=== PATIENT | female | born 1990 | race Caucasian/White ===

== ENCOUNTER → 2016-04-07 | Outpatient (CLI) | payer OTHER ==
[~2016-04-07] MED LIST: ACET50TA PO; IBUP80TA PO; VITAPRTA PO
--- NOTE | 2016-04-07 10:31 | REP ---
OBSTETRIC SONOGRAPHY: HISTORY: Supervision of for anatomy. FINDINGS: Scanning through the gravid uterus demonstrates a viable single intrauterine gestation in a cephalic lie. motion is observed and heart rate is recorder 144 beats per minute. A posterior grade 1 placenta is seen without evidence of previa or abruption. Amniotic fluid is subjectively normal. Closed cervical length is 4.0 cm. No extrauterine abnormality is observed. There has been appropriate interval growth. No anomaly is seen. nose and lips, four-chamber heart and right ventricular cardiac outflow tract views are less than optimally visualized due to position. The following additional anatomic structures are identified and felt to be sonographically unremarkable: cranium, choroid plexus, cavum, cerebellum and posterior fossa, lungs, left ventricular outflow tract view, diaphragm, left-sided stomach, abdominal wall cord insertion, three-vessel umbilical cord, kidneys and bladder, spine, upper and lower extremities. Biometry Chart: BPD 5.0 cm = 21 weeks 1 day HC 18.6 cm = 21 weeks 0 days AC 16.2 cm = 21 weeks 2 days FL 3.6 cm = 21 weeks 3 days HL 3.4 cm = 21 weeks 3 days HC/AC ratio normal 1.15. Cephalic index normal 0.74. Estimated weight 414 grams, 0 pounds 14 ounces, 47th percentile for 21 weeks 2 days. IMPRESSION: Viable single intrauterine gestation at 21 weeks 2 days by today's composite sonographic criteria. Expected gestational age estimate based on prior sonography is 21 weeks 2 days. MECHE by prior sonography is August 16, 2016. Facial profile, four-chamber heart, and right ventricular cardiac outflow tract views less than optimally seen. Signed by Woody Hernandes MD 04/07/2016 08:08 P
== END ==
LOC: M RAD 08:25
PROVIDERS: ATTEND Specialist
DX: Z34.82 Encounter for supervision of other normal pregnancy, second trimester (principal)

== ENCOUNTER → 2016-04-26 | Outpatient (CLI) | payer OTHER ==
--- NOTE | 2016-04-27 03:47 | REP ---
Clinical: Anatomical evaluation. Comparison: 04/07/2016 . Findings: Examination demonstrates a single live intrauterine in cephalic presentation. motion is identified by technologist. Placenta is grade 1 and noted posteriorly and low-lying approximately 1 cm from the closed internal os. Amniotic fluid volume is normal. Cervix measures 3.7 cm in length and appears closed. Gestational age by LMP 22 weeks 4 days with MECHE 08/26/2016 . Gestational age by current measurements 22 weeks 6 days with MECHE 08/24/2016 . FHR equals 144 beats per minute. Estimated weight 608 grams ( 77th percentile). Anatomical assessment demonstrates normal structures including cranium, choroid plexus, cavum, cerebellum/posterior fossa, facial features, lungs, four-chamber heart/ventricular outflow tracts, diaphragm, stomach, cord insertion/three-vessel cord, kidneys/bladder, spine, and extremities. Impression: Single live gestation in cephalic presentation. Low-lying placenta approximately 1 cm from the closed internal os. Anatomical assessment is complete and normal. Signed by Regan Martinez MD 04/27/2016 03:38 A
== END ==
LOC: M RAD 12:25
PROVIDERS: ATTEND Specialist
DX: Z34.82 Encounter for supervision of other normal pregnancy, second trimester (principal)

== ENCOUNTER → 2016-06-09 | Outpatient (CLI) | payer OTHER ==
[~2016-06-09] MED LIST changes: +PENI250T57 PO
[2016-06-09 13:33] LABS: BASO % 0.2 % (0.0-1.0); EOS # 0.1 K/mm3 (0.0-0.50); EOS % 0.7 % (0.0-3.0); LARGE UNSTAINED CELL # 0.1 K/mm3 (0.0-0.4); LARGE UNSTAINED CELL % 1.1 % (0.0-4.0); LYMPH # 1.6 K/mm3 (1.5-6.5); LYMPH % 14.1 % (24.0-44.0); MEAN CORPUSCULAR HEMOGLOBIN 27.2 pg (27.0-33.0); MEAN CORPUSCULAR HGB CONC 32.9 g/dl (32.0-36.5); MEAN CORPUSCULAR VOLUME 82.9 fl (80.0-96.0); MONO # 0.6 K/mm3 (0.0-0.8); MONO % 5.2 % (0.0-5.0); NEUTROPHILS # 8.4 K/mm3 (1.8-7.7); NEUTROPHILS % 78.7 % (36.0-66.0); PLATELET COUNT, AUTOMATED 187 k/mm3 (150-450); RED CELL DISTRIBUTION WIDTH 14.8 % (11.5-14.5); WHITE BLOOD COUNT 10.7 K/mm3 (4.0-10.0)
== END ==
LOC: M LAB 11:50
PROVIDERS: ATTEND Specialist
DX: Z34.82 Encounter for supervision of other normal pregnancy, second trimester (principal)
CPT/HCPCS: 36415; 82950; 85025; 86850; 86900; 86901; J2790

== ENCOUNTER 2016-06-14 08:23 | Emergency (ER) | payer OTHER ==
[~2016-06-14] VITALS: Ht 157.5 cm; Wt 85.7 kg
[~2016-06-14 08:23] MED LIST changes: -PENI250T57 PO
[2016-06-14 08:49] VITALS: BP 125/72
[2016-06-14] MEDS ORDERED: PENI250T57 PO (09:22)
== END 2016-06-14 09:26 | disposition home or self-care (01) ==
LOC: M ED 08:56
DX: J02.0 Streptococcal pharyngitis (principal)

== ENCOUNTER → 2016-06-14 | Outpatient (CLI) | payer OTHER ==
--- NOTE | 2016-06-14 12:13 | REP ---
Clinical: Low-lying placenta on prior examination. Comparison: 04/26/2016 . Findings: Examination demonstrates a single live intrauterine in cephalic presentation. motion is identified by technologist. Placenta is noted posteriorly and grade one without evidence for placenta previa or abruption. The placental tip is identified greater than 9 cm from the closed internal os. Amniotic fluid volume is normal. Cervix measures 4.3 cm in length and appears closed. Evidence for nuchal cord. Gestational age by LMP 29 weeks 4 days with MECHE is 08/26/2016 . Gestational age by current measurements 32 weeks 0 days with MECHE 08/09/2016 . FHR equals 127 beats per minute. OBED equals 15.8 cm. Estimated weight 1890 grams (65th percentile). Anatomical assessment demonstrates normal structures including cranium, choroid plexus, cavum, facial features, lungs, four-chamber heart/ventricular outflow tracts, diaphragm, stomach, cord insertion/three-vessel cord, kidneys/bladder, spine, and lower extremities. Impression: 1. Single live intrauterine in cephalic presentation demonstrating appropriate interval growth compared to first ultrasound. 2. Posterior grade 1 placenta without evidence for placenta previa or abruption. 3. Evidence for nuchal cord. Signed by Regan Martinez MD 06/14/2016 12:04 P
== END ==
LOC: M RAD 11:10
PROVIDERS: ATTEND Specialist
DX: Z36 Encounter for antenatal screening of mother (principal); Z3A.32 32 weeks gestation of pregnancy

== ENCOUNTER 2016-06-22 11:13 | Outpatient (CLI) | payer OTHER ==
[~2016-06-22 11:13] MED LIST changes: +PENI250T57 PO
[2016-06-22] MEDS ORDERED: IRON SUCROSE 500 MG in NS 250 ML IV ONE (13:00)
[2016-06-22] MEDS ORDERED: PRENATAL VITAMIN PO (16:20)
[2016-06-22] MEDS ORDERED: PRENTAB52 PO (16:22)
== END 2016-06-22 17:05 | disposition home or self-care (01) ==
LOC: M INFU 11:13
PROVIDERS: ATTEND Specialist
DX: D64.9 Anemia, unspecified (principal)
CPT/HCPCS: 96365; 96366; J1756

== ENCOUNTER 2016-07-22 11:08 | Outpatient (CLI) | payer OTHER ==
[~2016-07-22] VITALS: Ht 157.5 cm; Wt 85.0 kg
[~2016-07-22 11:08] MED LIST changes: +PRENATAL VITAMIN PO; +PRENTAB52 PO
== END 2016-07-22 12:18 | disposition home or self-care (01) ==
LOC: M LDO 11:08
PROVIDERS: ATTEND Advanced Practice Midwife
DX: O47.03 False labor before 37 completed weeks of gestation, third trimester (principal); Z3A.35 35 weeks gestation of pregnancy; Z91.030 Bee allergy status; Z91.048 Other nonmedicinal substance allergy status

== ENCOUNTER 2016-08-21 19:30 | Inpatient (IN) | payer OTHER ==
[~2016-08-21] VITALS: Ht 157.5 cm; Wt 85.0 kg
[2016-08-21 20:15] LABS: MEAN CORPUSCULAR HEMOGLOBIN 28.5 pg (27.0-33.0); MEAN CORPUSCULAR HGB CONC 34.5 g/dl (32.0-36.5); MEAN CORPUSCULAR VOLUME 82.4 fl (80.0-96.0); RED CELL DISTRIBUTION WIDTH 17.8 % (11.5-14.5); WHITE BLOOD COUNT 8.8 K/mm3 (4.0-10.0)
[2016-08-21] MEDS ORDERED: LR 1,000 ML IV SCH (20:26)
[2016-08-21] MEDS ORDERED: LACTATED RINGER'S 1000 ML IV STA (20:26)
[2016-08-21] MEDS ORDERED: OXYTOCIN DRIP 30 UNITS in APPROPRIATE DILUENT 1 EA IV SCH (20:30)
[2016-08-21] MEDS ORDERED: FENTANYL 2MCG/ML ROPIVACAINE 0.2% IN 0.9% NACL 200ML IVBAG As Ordered ONE (22:39)
[2016-08-21] MEDS ORDERED: FENTANYL/ROPIVACAINE/NACL BAG 200 ML EPIDURAL SCH (23:30)
[2016-08-21] MEDS ORDERED: REFRIGERATOR IV KEYS XX PRN (23:30)
[2016-08-21] MEDS ORDERED: ONDANSETRON 4MG/2ML VIAL (J2405) IV PRN (23:30)
[2016-08-21] MEDS ORDERED: LACTATED RINGER'S 1000 ML IV PRN (23:30)
[2016-08-21] MEDS ORDERED: diphenhydrAMINE INJ 50MG/ML VIAL (J1200) IV PRN (23:30)
[2016-08-21] MEDS ORDERED: EPIDURAL COMMENT XX SCH (23:30)
[2016-08-21] MEDS ORDERED: EPIDURAL/PCA KEYS XX PRN (23:30)
[2016-08-21] MEDS ORDERED: NALOXONE INJ 0.4 MG/1 ML VIAL (J2310) IV PRN (23:30)
[2016-08-22] VITALS (18 sets, daily range): BP systolic 88–128; BP diastolic 52–73
[2016-08-22 00:18] LABS: ALT/SGPT 16 U/L (12-78); AST/SGOT 14 U/L (15-37); BILIRUBIN,TOTAL 0.6 MG/DL (0.2-1.0); CREATININE FOR GFR 0.51 MG/DL (0.55-1.02); GLOMERULAR FILTRATION RATE > 60.0 (>60)
[2016-08-22] MEDS: ePHEDrine SULFATE 25 MG/5 ML(5MG/ML) SYRINGE IV PRN ×2 (07:44→08:17)
[2016-08-22] MEDS: PRENATAL VITAMIN TAB PO SCH (09:00)
[2016-08-22 09:29] LABS: CORD GAS ABE V -6.9; CORD GAS HCO3 V 17.8 MEQ/L; CORD GAS O2 SAT V 69.4 %; CORD GAS PCO2 V 34.3 mmHg; CORD GAS PH V 7.332 UNITS; CORD GAS PO2 V 30.9 mmHg; CORD GAS SBC V 18.3 MEQ/L; CORD GAS TCO2 V 18.8 MEQ/L
[2016-08-22 09:32] LABS: CORD GAS ABE A -5.9; CORD GAS HCO3 A 22.1 MEQ/L; CORD GAS O2 SAT A 35.8 %; CORD GAS PCO2 A 52.7 mmHg; CORD GAS PH A 7.241 UNITS; CORD GAS PO2 A 19.4 mmHg; CORD GAS SBC A 18.1 MEQ/L; CORD GAS TCO2 A 23.7 MEQ/L
[2016-08-22] MEDS ORDERED: RHOGAM 300 MCG (1500 IU) INJ (J2790) IM SCH (10:30)
[2016-08-22] MEDS ORDERED: ONDANSETRON 4MG/2ML VIAL (J2405) IV PRN (10:30)
[2016-08-22] MEDS ORDERED: DIBUCAINE 1% OINTMENT 30GM TOP PRN (10:30)
[2016-08-22] MEDS ORDERED: OXYTOCIN DRIP 30 UNITS in APPROPRIATE DILUENT 1 EA IV SCH (10:30)
[2016-08-22] MEDS ORDERED: IBUPROFEN 800 MG TAB PO PRN (10:30)
[2016-08-22] MEDS ORDERED: PROMETHAZINE 25 MG TAB PO PRN (10:30)
[2016-08-22] MEDS ORDERED: MEASLES,MUMPS,RUBELLA VACCINE INJ (MMR-II) (90707) SC SCH (10:30)
[2016-08-22] MEDS: LR 1,000 ML IV SCH ×2 (10:30→18:30)
[2016-08-22] MEDS: ACETAMINOPHEN 500 MG TAB PO PRN ×2 (14:34→20:54)
[2016-08-22] MEDS ORDERED: KETOROLAC 30 MG/ML VIAL (J1885) IV PRN (18:00)
[2016-08-22] MEDS ORDERED: PERCOCET 5MG/325MG TAB PO PRN (21:45)
[2016-08-22] MEDS: DOCUSATE SODIUM 100 MG CAP PO PRN (22:57)
[2016-08-23] MEDS: PERCOCET 5MG/325MG TAB PO PRN ×3 (02:19→19:46)
[2016-08-23] MEDS: LR 1,000 ML IV SCH ×3 (02:30→18:30)
[2016-08-23 06:04] VITALS: BP 90/54
[2016-08-23] MEDS: PRENATAL VITAMIN TAB PO SCH (08:49)
[2016-08-23] MEDS: DOCUSATE SODIUM 100 MG CAP PO PRN (08:52)
[2016-08-23] MEDS: ACETAMINOPHEN 500 MG TAB PO PRN (08:53)
[2016-08-23] MEDS ORDERED: OXYC1TAB23 PO (10:02)
[2016-08-23] MEDS ORDERED: IBUP600T26 PO (10:03)
[2016-08-23 18:00] VITALS: BP 101/61
[2016-08-24] MEDS: LR 1,000 ML IV SCH (02:30)
[2016-08-24 06:31] VITALS: BP 106/60
[2016-08-24] MEDS: PRENATAL VITAMIN TAB PO SCH (08:05)
[2016-08-24] MEDS: PERCOCET 5MG/325MG TAB PO PRN (08:06)
[2016-08-24] MEDS ORDERED: ACET50TA PO (09:48)
[2016-08-24] MEDS ORDERED: COLA100C3 PO (09:48)
== END 2016-08-24 11:30 | disposition home or self-care (01) | DRG 560 ==
LOC: M LDI 19:30 → M OBS 08-22 11:35
PROVIDERS: ADMIT Obstetrics & Gynecology; ATTEND Obstetrics & Gynecology
PROC: 10E0XZZ Delivery of Products of Conception, External Approach (ICD-10-PCS; principal; 2016-08-22)
PROC: 0KQM0ZZ Repair Perineum Muscle, Open Approach (ICD-10-PCS; 2016-08-22)
DX: O69.89X0 Labor and delivery complicated by other cord complications, not applicable or unspecified (principal); O70.1 Second degree perineal laceration during delivery; Z37.0 Single live birth; Z3A.39 39 weeks gestation of pregnancy

== ENCOUNTER 2017-04-09 11:19 | Emergency (ER) | payer OTHER ==
[2017-04-09 12:30] LABS: BASO % 0.5 % (0.0-1.0); EOS # 0.1 10^3/uL (0.0-0.50); EOS % 1.5 % (0.0-3.0); HEMATOCRIT 34.4 % (36.0-47.0); HEMOGLOBIN 10.7 g/dl (12.0-16.0); IMMATURE GRANULOCYTE % 0.2 % (0-0); LYMPH # 1.6 10^3/uL (1.5-6.5); LYMPH % 29.1 % (24.0-44.0); MEAN CORPUSCULAR HEMOGLOBIN 24.4 pg (27.0-33.0); MEAN CORPUSCULAR HGB CONC 31.1 g/dl (32.0-36.5); MEAN CORPUSCULAR VOLUME 78.4 fl (80.0-96.0); MONO # 0.5 10^3/uL (0.0-0.8); MONO % 8.8 % (0.0-5.0); NEUTROPHILS # 3.3 10^3/uL (1.8-7.7); NEUTROPHILS % 59.9 % (36.0-66.0); PLATELET COUNT, AUTOMATED 263 10^3/uL (150-450); RED BLOOD COUNT 4.39 10^6/uL (4.00-5.40); RED CELL DISTRIBUTION WIDTH 15.8 % (11.5-14.5); WHITE BLOOD COUNT 5.5 10^3/uL (4.0-10.0)
[2017-04-09 12:51] LABS: ALBUMIN 4.1 GM/DL (3.2-5.2); ALBUMIN/GLOBULIN RATIO 1.14 (1.00-1.93); ALKALINE PHOSPHATASE 84 U/L (45-117); ALT/SGPT 25 U/L (12-78); ANION GAP 5 MEQ/L (8-16); AST/SGOT 14 U/L (7-37); BILIRUBIN,TOTAL 0.3 MG/DL (0.2-1.0); BLOOD UREA NITROGEN 15 MG/DL (7-18); CALCIUM LEVEL 8.9 MG/DL (8.5-10.1); CARBON DIOXIDE LEVEL 29 MEQ/L (21-32); CHLORIDE LEVEL 107 MEQ/L (98-107); CREATININE FOR GFR 0.65 MG/DL (0.55-1.02); GLOMERULAR FILTRATION RATE > 60.0 (>60); GLUCOSE, FASTING 81 MG/DL (70-105); POTASSIUM SERUM 3.9 MEQ/L (3.5-5.1); SODIUM LEVEL 141 MEQ/L (136-145); TOTAL PROTEIN 7.7 GM/DL (6.4-8.2)
== END 2017-04-09 15:33 | disposition home or self-care (01) ==
LOC: M ED 11:19
DX: R07.1 Chest pain on breathing (principal); Z91.030 Bee allergy status; J30.1 Allergic rhinitis due to pollen; Z87.891 Personal history of nicotine dependence
CPT/HCPCS: 71046

== ENCOUNTER → 2018-05-10 | Outpatient (REF) | payer OTHER ==
[~2018-05-10] MED LIST changes: -ACET50TA PO; +COLA100C5 PO; +IBUP-1022 PO; +MAPA500T2 PO; +NAPR-885 PO; +NEXI1CAP4 PO; +OXYC1TAB23 PO
[2018-05-10 19:58] LABS: INFLUENZA A AMPLIFICATION NEGATIVE (NEGATIVE); INFLUENZA B AMPLIFICATION NEGATIVE (NEGATIVE)
== END ==
LOC: M LAB REF 19:06
PROVIDERS: ATTEND Physician Assistant
DX: J11.1 Influenza due to unidentified influenza virus with other respiratory manifestations (principal)

== ENCOUNTER → 2018-05-31 | Outpatient (REF) | payer OTHER ==
[2018-05-31 18:48] LABS: INFLUENZA A AMPLIFICATION POSITIVE (NEGATIVE); INFLUENZA B AMPLIFICATION NEGATIVE (NEGATIVE)
== END ==
LOC: M LAB REF 17:50
PROVIDERS: ATTEND Physician Assistant
DX: J11.1 Influenza due to unidentified influenza virus with other respiratory manifestations (principal)

== ENCOUNTER 2018-09-18 19:36 | Emergency (ER) | payer OTHER ==
[~2018-09-18] VITALS: Ht 157.5 cm; Wt 93.6 kg
--- NOTE | 2018-09-18 21:22 | REP ---
Clinical: Pain. Technique: AP, lateral, bilateral oblique views of the right ankle. Findings: Soft tissue swelling cannot be excluded. No acute fracture dislocation. Joint spaces and ankle mortise are intact. No subcutaneous emphysema or radiodense foreign body. Impression: No acute fracture dislocation. Electronically Signed by Regan Martinez MD 09/18/2018 09:13 P
[2018-09-18] MEDS ORDERED: KETO10TAB PO (22:07)
[2018-09-18 22:11] VITALS: BP 113/53
[2018-09-18] MEDS ORDERED: KETOROLAC 30 MG/ML VIAL (J1885) IM ONE (22:45)
== END 2018-09-18 22:56 | disposition home or self-care (01) ==
LOC: M ED 19:36
DX: S90.01XA Contusion of right ankle, initial encounter (principal); J30.1 Allergic rhinitis due to pollen; Z79.1 Long term (current) use of non-steroidal anti-inflammatories (NSAID); Z91.030 Bee allergy status
CPT/HCPCS: 73610; 96372; 99283; J1885

== ENCOUNTER 2018-11-23 12:57 | Emergency (ER) | payer OTHER ==
[~2018-11-23] VITALS: Ht 157.5 cm; Wt 94.7 kg
[2018-11-23 12:57] VITALS: BP 141/87
[~2018-11-23 12:57] MED LIST changes: +KETO10TAB PO
[2018-11-23] MEDS ORDERED: CEFU1TAB22 PO (13:02)
[2018-11-23] MEDS ORDERED: FLUORESCEIN OPHTH 1 MG STRIP OD ONE (13:45)
[2018-11-23] MEDS ORDERED: TETRACAINE 0.5% OPHTH SOLN 4ML OD ONE (13:45)
[2018-11-23] MEDS ORDERED: PATA2.5S OU (13:56)
== END 2018-11-23 14:12 | disposition home or self-care (01) ==
LOC: M ED 12:57
DX: H10.11 Acute atopic conjunctivitis, right eye (principal); Z79.2 Long term (current) use of antibiotics; Z91.030 Bee allergy status; J30.2 Other seasonal allergic rhinitis

== ENCOUNTER → 2019-01-08 | Outpatient (REF) | payer OTHER ==
[~2019-01-08] MED LIST changes: +CEFU1TAB22 PO; +PATA2.5S OU
[2019-01-08 16:12] LABS: BASO # 0.1 10^3/uL (0.0-0.2); EOS # 0.1 10^3/uL (0.0-0.5); EOS % 1.9 % (0.0-3.0); HEMATOCRIT 33.7 % (36.0-47.0); HEMOGLOBIN 9.9 g/dl (12.0-15.5); LYMPH # 2.1 10^3/uL (1.5-5.0); LYMPH % 29.2 % (24.0-44.0); MEAN CORPUSCULAR HGB CONC 29.4 g/dl (32.0-36.5); MEAN CORPUSCULAR VOLUME 74.7 fl (80.0-96.0); MONO # 0.7 10^3/uL (0.0-0.8); MONO % 10.1 % (0.0-5.0); NEUTROPHILS # 4.1 10^3/uL (1.5-8.5); NEUTROPHILS % 56.8 % (36.0-66.0); PLATELET COUNT, AUTOMATED 291 10^3/uL (150-450); RED BLOOD COUNT 4.51 10^6/uL (4.00-5.40); WHITE BLOOD COUNT 7.3 10^3/uL (4.0-10.0)
[2019-01-08 16:33] LABS: HEMOGLOBIN A1c 5.3 %
[2019-01-08 16:47] LABS: ALT/SGPT 34 U/L (12-78); BILIRUBIN,TOTAL 0.5 MG/DL (0.2-1.0); BLOOD UREA NITROGEN 16 MG/DL (7-18); CALCIUM LEVEL 8.9 MG/DL (8.5-10.1); CARBON DIOXIDE LEVEL 25 MEQ/L (21-32); CHLORIDE LEVEL 107 MEQ/L (98-107); CHOLESTEROL LEVEL 251 MG/DL (<200); CREATININE FOR GFR 0.74 MG/DL (0.55-1.30); FERRITIN 4 NG/ML (8-252); FREE T4 0.79 NG/DL (0.76-1.46); GLOMERULAR FILTRATION RATE > 60.0 (>60); GLUCOSE, FASTING 83 MG/DL (70-100); HDL CHOLESTEROL 50 MG/DL (>40); IRON (FE) 26 UG/DL (50-170); LDL CHOLESTEROL 173 MG/DL (<100); NON-HDL-C 201 MG/DL; POTASSIUM SERUM 4.2 MEQ/L (3.5-5.1); SODIUM LEVEL 138 MEQ/L (136-145); TOTAL PROTEIN 7.4 GM/DL (6.4-8.2); TRIGLYCERIDES LEVEL 138 MG/DL (<150)
[2019-01-08 16:50] LABS: TOTAL 25(OH) VITAMIN D 19.8 NG/ML (30.0-100.0); VITAMIN B12 LEVEL 323 PG/ML (247-911)
== END ==
LOC: M LAB REF 14:40
PROVIDERS: ATTEND Nurse Practitioner Family
DX: Z00.01 Encounter for general adult medical examination with abnormal findings (principal)

== ENCOUNTER → 2019-03-09 | Outpatient (REF) | payer OTHER | LOC: M LAB REF 10:43 | PROVIDERS: ATTEND Physician Assistant Medical | DX: J01.10 Acute frontal sinusitis, unspecified (principal) ==

== ENCOUNTER → 2019-05-03 | Outpatient (REF) | payer OTHER, MEDICAID | LOC: M SFHCWAGY 12:40 | PROVIDERS: ATTEND Nurse Practitioner Women's Health | DX: Z12.4 Encounter for screening for malignant neoplasm of cervix (principal) ==

== ENCOUNTER → 2019-09-19 | Outpatient (REF) | payer OTHER, MEDICAID ==
[2019-09-19 17:02] LABS: BASO # 0.1 10^3/uL (0.0-0.2); BASO % 0.6 % (0.0-1.0); EOS # 0.1 10^3/uL (0.0-0.5); EOS % 0.6 % (0.0-3.0); HEMATOCRIT 36.6 % (36.0-47.0); MEAN CORPUSCULAR HEMOGLOBIN 23.3 pg (27.0-33.0); MEAN CORPUSCULAR HGB CONC 30.1 g/dl (32.0-36.5); MEAN CORPUSCULAR VOLUME 77.5 fl (80.0-96.0); MONO # 0.7 10^3/uL (0.0-0.8); MONO % 7.8 % (0.0-5.0); NEUTROPHILS # 5.6 10^3/uL (1.5-8.5); NEUTROPHILS % 66.3 % (36.0-66.0); PLATELET COUNT, AUTOMATED 267 10^3/uL (150-450); RED BLOOD COUNT 4.72 10^6/uL (4.00-5.40); WHITE BLOOD COUNT 8.4 10^3/uL (4.0-10.0)
[2019-09-19 17:08] LABS: ALBUMIN 3.9 GM/DL (3.2-5.2); ALT/SGPT 34 U/L (12-78); BILIRUBIN,TOTAL 0.5 MG/DL (0.2-1.0); BLOOD UREA NITROGEN 10 MG/DL (7-18); CALCIUM LEVEL 8.9 MG/DL (8.5-10.1); CARBON DIOXIDE LEVEL 25 MEQ/L (21-32); CHLORIDE LEVEL 106 MEQ/L (98-107); CHOLESTEROL LEVEL 222 MG/DL (<200); CHOLESTEROL RISK RATIO 4.352 (<5); CREATININE FOR GFR 0.71 MG/DL (0.55-1.30); FERRITIN 4 NG/ML (8-252); GLOMERULAR FILTRATION RATE > 60.0 (>60); GLUCOSE, FASTING 80 MG/DL (70-100); HDL CHOLESTEROL 51 MG/DL (>40); IRON (FE) 26 UG/DL (50-170); LDL CHOLESTEROL 148 MG/DL (<100); NON-HDL-C 171 MG/DL; POTASSIUM SERUM 4.3 MEQ/L (3.5-5.1); SODIUM LEVEL 138 MEQ/L (136-145); TOTAL PROTEIN 7.2 GM/DL (6.4-8.2); TRIGLYCERIDES LEVEL 115 MG/DL (<150)
[2019-09-19 17:10] LABS: VITAMIN B12 LEVEL 473 PG/ML (247-911)
[2019-09-19 17:15] LABS: HEMOGLOBIN A1c 5.4 %
== END ==
LOC: M LAB REF 15:59
PROVIDERS: ATTEND Nurse Practitioner Family
DX: D64.9 Anemia, unspecified (principal); E55.9 Vitamin D deficiency, unspecified; E78.5 Hyperlipidemia, unspecified; E66.9 Obesity, unspecified

== ENCOUNTER → 2019-10-26 | Outpatient (REF) | payer OTHER, MEDICAID ==
[2019-11-24 01:17] LABS: HEMATOCRIT 39.2 % (36.0-47.0); MEAN CORPUSCULAR HEMOGLOBIN 24.2 pg (27.0-33.0); MEAN CORPUSCULAR HGB CONC 30.6 g/dl (32.0-36.5); MEAN CORPUSCULAR VOLUME 79.2 fl (80.0-96.0); PLATELET COUNT, AUTOMATED 256 10^3/uL (150-450); RED BLOOD COUNT 4.95 10^6/uL (4.00-5.40); WHITE BLOOD COUNT 12.7 10^3/uL (4.0-10.0)
[2019-12-08 14:54] LABS: CHLAMYDIA DNA AMPLIFICATION NEGATIVE (NEGATIVE); GC DNA AMPLIFICATION NEGATIVE (NEGATIVE)
[2019-12-13 10:09] LABS: GLUCOSE CHALLENGE TEST 1 HOUR 99 MG/DL (LESS THAN 140); HEPATITIS C VIRUS ABY INDEX 0.2 INDEX (<0.8); HIV 1&2 SCREEN CENTAUR NEGATIVE (NEGATIVE)
== END ==
LOC: M SFHCWAGY 13:40
PROVIDERS: ATTEND Advanced Practice Midwife
DX: O99.211 Obesity complicating pregnancy, first trimester (principal)

== ENCOUNTER → 2019-11-08 | Outpatient (CLI) | payer OTHER, MEDICAID | LOC: M PLALAB 09:01 | PROVIDERS: ATTEND Specialist | DX: Z34.82 Encounter for supervision of other normal pregnancy, second trimester (principal); Z3A.00 Weeks of gestation of pregnancy not specified ==

== ENCOUNTER → 2019-12-06 | Outpatient (REF) | payer OTHER, MEDICAID ==
[2019-12-11 22:21] LABS: CHLAMYDIA DNA AMPLIFICATION NEGATIVE (NEGATIVE); GC DNA AMPLIFICATION NEGATIVE (NEGATIVE)
== END ==
LOC: M SFHCWAGY 12:53
PROVIDERS: ATTEND Advanced Practice Midwife
DX: Z34.82 Encounter for supervision of other normal pregnancy, second trimester (principal); Z3A.00 Weeks of gestation of pregnancy not specified

== ENCOUNTER → 2020-02-19 | Outpatient (REF) | payer OTHER, MEDICAID ==
[2020-02-19 14:02] LABS: HEMATOCRIT 32.4 % (36.0-47.0); HEMOGLOBIN 9.6 g/dl (12.0-15.5); MEAN CORPUSCULAR HEMOGLOBIN 24.3 pg (27.0-33.0); MEAN CORPUSCULAR HGB CONC 29.6 g/dl (32.0-36.5); PLATELET COUNT, AUTOMATED 165 10^3/uL (150-450); RED BLOOD COUNT 3.95 10^6/uL (4.00-5.40); WHITE BLOOD COUNT 11.4 10^3/uL (4.0-10.0)
== END ==
LOC: M PLALAB 08:44
PROVIDERS: ATTEND Obstetrics & Gynecology
DX: Z34.82 Encounter for supervision of other normal pregnancy, second trimester (principal); Z3A.21 21 weeks gestation of pregnancy
CPT/HCPCS: 36415; 82950; 85027; 86850; 86900; 86901; J2790

== ENCOUNTER → 2020-02-29 | Outpatient (CLI) | payer OTHER, MEDICAID | LOC: M WHC 15:22 | PROVIDERS: ATTEND Obstetrics & Gynecology | DX: Z36.89 Encounter for other specified antenatal screening (principal) ==

== ENCOUNTER → 2020-03-07 | Outpatient (CLI) | payer OTHER ==
--- NOTE | 2020-03-07 16:48 | REP ---
INDICATION: LARGE FOR DATES,GROWTH. COMPARISON: 12/13/2019. TECHNIQUE: Real-time sonographic evaluation of the gravid uterus performed. FINDINGS: Estimated gestational age is31 weeks 1 day, EDC 05/08/2020. Today's measurements indicate appropriate growth. Presentation: Transverse head maternal left side. Placenta fundal, grade 3, without evidence of placenta previa. heart rate is recorded at the 150 beats per minute. Amniotic fluid is subjectively normal. OBED 15.0, normal range 8.8-23.8. Closed cervical length is measured at 4.0 cm. Biometry chart: BPD: 84 mm, 33 weeks 5 days, 88th percentile. HC: 302 mm, 33 weeks 4 days, 86th percentile AC: 297 mm, 33 weeks 5 days, 89th percentile Femur length: 60 mm, 31 weeks 3 days, 55th percentile HC to AC ratio: 1.02, normal range 0.96-1.15. Estimated weight: 04/21/2002g, over 97th percentile. IMPRESSION: Viable single intrauterine gestation as above. <Electronically signed by Robert Kinney > 03/07/20 [id number]
== END ==
LOC: M WHC 14:58
PROVIDERS: ATTEND Obstetrics & Gynecology
DX: Z3A.30 30 weeks gestation of pregnancy (principal)

== ENCOUNTER → 2020-03-28 | Outpatient (CLI) | payer OTHER, MEDICAID | LOC: M WHC 13:13 | PROVIDERS: ATTEND Obstetrics & Gynecology | DX: Z36.89 Encounter for other specified antenatal screening (principal); Z3A.34 34 weeks gestation of pregnancy ==

== ENCOUNTER → 2020-04-11 | Outpatient (CLI) | payer OTHER ==
--- NOTE | 2020-04-13 18:00 | REP ---
INDICATION: 34 WEEKS GESTATION,GROWTH COMPARISON: 03/07/2020 TECHNIQUE: Transabdominal obstetrical ultrasound with color Doppler evaluation. FINDINGS: Examination demonstrates a single live intrauterine in cephalic presentation. motion is identified by technologist. Placenta is noted posterior/fundal and grade 3 without evidence for placenta previa or abruption. Amniotic fluid volume is normal. Cervix measures 3.9 cm in length and appears closed.. Gestational age by LMP 36 weeks 1 day with MECHE 05/08/2020. Gestational age by current measurements 37 weeks 1 day with MECHE 05/01/2020. FHR equals 136 beats per minute. BPD: 9.2 cm 37 weeks 3 days HC: 33.9 cm 38 weeks 6 days AC: 35.3 cm 39 weeks 2 days FL: 6.8 cm 34 weeks 5 days HL: 6.1 cm 35 weeks 4 days HC/AC: 0.96 Estimated weight 3372 grams (greater than 97thpercentile). IMPRESSION: Single live advanced gestation in cephalic presentation demonstrating greater than expected growth based on age by LMP and 1st ultrasound. <Electronically signed by Regan Martinez > 04/13/20 [id number]
== END ==
LOC: M WHC 12:44
PROVIDERS: ATTEND Obstetrics & Gynecology
DX: Z36.9 Encounter for antenatal screening, unspecified (principal); Z3A.37 37 weeks gestation of pregnancy

== ENCOUNTER → 2020-04-11 | Outpatient (REF) | payer OTHER, MEDICAID | LOC: M SFHCPLAZ 17:00 | PROVIDERS: ATTEND Advanced Practice Midwife | DX: O99.213 Obesity complicating pregnancy, third trimester (principal) ==

== ENCOUNTER 2020-05-02 10:49 | Inpatient (IN) | payer MEDICAID, OTHER ==
[2020-05-02] VITALS (17 sets, daily range): BP systolic 94–148; BP diastolic 52–77
[~2020-05-02] VITALS: Ht 157.5 cm; Wt 99.2 kg
[~2020-05-02 10:49] MED LIST changes: +miSOPROStol 50MCG 1/2 TABLET PO SCH
--- OUTSIDE RECORDS SUMMARY | 2020-05-02 10:53 | CCD ---
Author Author [facility] Organization [facility] Address Unknown Phone Unavailable Care Team Providers Care Sales Promotion Manager Name Role Phone Luann Tinajero Unavailable PROBLEMS Type Condition ICD9-CM Code [id number] Code Onset Dates Condition S tatus SNOMED Code Notes Problem Obesity complicating in first trimester O99.211 Active 206767693869 Problem Body mass index (BMI) 38.0-38.9, adult Z68.38 A ctive 046979776 Problem Anemia affecting O99.019 Active 85101 008 Problem Constipation K59.00 Active 64933842 Problem Other obesity due to excess calories E66.09 Act fantasma 124009987 Problem Obesity (BMI 35.0-39.9 without comorbidity) E66.01 Active 571339489 Problem Obesity E66.9 Active 584933312 Problem Obesity complicating in second trimester O99.212 Active 220650564380 ALLERGIES Allergen (clinical drug ingredient) Drug/Non Drug Allergy do cumented on EMR Reaction Allergy Type Onset Date Status ragweed Rash Non Drug Allergy Active spiders Hives Non Drug Allergy Active Bee sting Hives Non Drug Allergy Active ENCOUNTERS from 1989 to 2020-03-04 Encounter Location Date Provider Diagnosis [facility] [address] [place] [address] 11 Feb, 2020 Luann Tinajero Obesity complicating , third trimester O99.213 ; Maternal care for anti-D [Rh] antibodies, third trimester, not applicable or unspecified O36.0130 and 30 weeks gestation of Z3A.30 IMMUNIZATIONS Vaccine Route Administration Date Status RHo (D) Immune Globulin 300mcg/1.5mL (RhoGAM) IM Intramuscular D ec 2019 Administered Influenza (6mo & up) Fluzone IM Intramuscular Jan 02, 2020 Ad ministered SOCIAL HISTORY Tobacco Use: Social History Observation Description Date Details (start date - stop date) Never Smoker Sex Assigned At : Social History Observation Description Sex Assigned At Unknown Language: Question Answer Notes Languages spoken: Bengali BMI Care Goal Follow-Up Question Answer Notes Above Normal BMI Follow-Up Weight monitoring Tobacco Use: Question Answer Notes Are you a: never smoker REASON FOR REFERRAL No Information VITAL SIGNS Weight 217 lbs Feb, Height 62" in Feb, BMI 39.69 kg/m2 Feb, Blood pressure systolic 110 mm Hg Feb, Blood pressure diastolic 72 mm Hg Feb, MEDICATIONS Medication SIG (Take, Route, Frequency, Duration) Notes Start Da te End Date Status Ferrous Sulfate 325 (65 Fe) MG 1 tablet Orally Twice a day for 3 0 day(s) Feb, Active Iron 325 (65 Fe) MG 1 tablet Orally Daily Not-Taking MiraLax 17 GM 1 packet mixed with 8 ounces of fluid Orally Once a day for 30 day(s) Feb, Not-Taking 27-1 MG 1 tablet Orally Once a day Active Vitamin D3 25 MCG (1000 UT) 1 tab orally Daily Active Simvastatin 20 MG 1 tablet in the evening Orally Once a day for 30 da y(s) Not-Taking PROCEDURES from 1989 to 2020-03-04 Procedure Date Ordered Result Body Site Injection: RhoGAM 300mcg/1.5mL IM (Rho [D] Immune Globulin H uman) 2020-02-29 N/A RESULTS No Results REASON FOR VISIT 4WK PN MEDICAL (GENERAL) HISTORY Type Description Date Medical History Hypoglycemia Medical History Anemia, unspecified type Medical History Other hyperlipidemia Surgical History No Surgical history information Hospitalization History childbirth Goals Section No Information Health Concerns No Information MEDICAL EQUIPMENT No Information MENTAL STATUS No Information FUNCTIONAL STATUS No Information ASSESSMENTS Encounter Date Diagnosis Assessment Notes Treatment Notes Treatm ent Clinical Notes Feb, Obesity complicating , third tr imester (ICD-10 - O99.213) Feb, Maternal care for anti-D [Rh ] antibodies, third trimester, not applicable or unspecified (ICD-10 - O36.0130) Feb, 30 weeks gestation of (ICD-10 - Z3A.30 ) PLAN OF TREATMENT Treatment Notes Test Name Order Date [facility] OBS FOLLOW UP OR REPEAT 2020-03-04 Next Appt Details 4 Weeks Reason:PN Provider Name:Luann Tinajero, 2020-03 02:40:00 PM, [address] [place], [address], Follow Up:4 WeeksPN Insurance Providers Payer Name Payer Address Payer Phone Insured Name Patient Relati onship to Insured Coverage Start Date Coverage End Date [facility]AN [facility] [address] [facility] [address] LAKEISHA BARRERA self MEDICAID [facility] [address] [facility] [id number] [place] self
--- OUTSIDE RECORDS SUMMARY | 2020-05-02 10:53 | CCD ---
Author Author [facility] Organization [facility] Address Unknown Phone Unavailable Care Team Providers Care Supervisor Real Estate Office Name Role Phone Luann Tinajero Unavailable PROBLEMS Type Condition ICD9-CM Code [id number] Code Onset Dates Condition S tatus SNOMED Code Notes Problem Obesity complicating in first trimester O99.211 Active 943934482028 Problem Body mass index (BMI) 38.0-38.9, adult Z68.38 A ctive 574914037 Problem Anemia affecting O99.019 Active 01103 008 Problem Constipation K59.00 Active 32101217 Problem Other obesity due to excess calories E66.09 Act fantasma 128354269 Problem Obesity (BMI 35.0-39.9 without comorbidity) E66.01 Active 491011582 Problem Obesity E66.9 Active 160197031 Problem Obesity complicating in second trimester O99.212 Active 000450006749 ALLERGIES Allergen (clinical drug ingredient) Drug/Non Drug Allergy do cumented on EMR Reaction Allergy Type Onset Date Status ragweed Rash Non Drug Allergy Active spiders Hives Non Drug Allergy Active Bee sting Hives Non Drug Allergy Active ENCOUNTERS from 1989 to 2020-02-22 Encounter Location Date Provider Diagnosis [facility] [address] [place] [address] Feb, Luann Tinajero Anemia affecting pre gnancy O99.019 and Constipation K59.00 IMMUNIZATIONS Vaccine Route Administration Date Status Influenza (6mo & up) Fluzone IM Intramuscular Jan 02, 2020 Ad ministered SOCIAL HISTORY Tobacco Use: Social History Observation Description Date Details (start date - stop date) Never Smoker Sex Assigned At : Social History Observation Description Sex Assigned At Unknown Language: Question Answer Notes Languages spoken: Yoruba Sexual Hx: Question Answer Notes Had sex in the last 12 months (vaginal, oral, or anal)? Yes LMP: 04/21/2019 Have you ever had an STD? No Use protection? No BMI Care Goal Follow-Up Question Answer Notes Above Normal BMI Follow-Up Weight monitoring Tobacco Use: Question Answer Notes Are you a: never smoker REASON FOR REFERRAL No Information VITAL SIGNS No information MEDICATIONS Medication SIG (Take, Route, Frequency, Duration) Notes Start Da te End Date Status Simvastatin 20 MG 1 tablet in the evening Orally Once a day for 30 da y(s) Not-Taking Ferrous Sulfate 325 (65 Fe) MG 1 tablet Orally Twice a day for 3 0 day(s) Feb, Active Vitamin D3 25 MCG (1000 UT) 1 tab orally Daily Active Iron 325 (65 Fe) MG 1 tablet Orally Daily Active 27-1 MG 1 tablet Orally Once a day Active MiraLax 17 GM 1 packet mixed with 8 ounces of fluid Orally Once a day for 30 day(s) Feb, Active PROCEDURES No Information RESULTS No Results REASON FOR VISIT No Information MEDICAL (GENERAL) HISTORY Type Description Date Medical History Hypoglycemia Medical History Anemia, unspecified type Medical History Other hyperlipidemia Surgical History No know Surgical history Hospitalization History childbirth Goals Section No Information Health Concerns No Information MEDICAL EQUIPMENT No Information MENTAL STATUS No Information FUNCTIONAL STATUS No Information ASSESSMENTS Encounter Date Diagnosis Assessment Notes Treatment Notes Treatm ent Clinical Notes Feb, Anemia affecting (ICD-10 - O99.019) Feb, Constipation (ICD-10 - K59.00) PLAN OF TREATMENT Medication Medication Name Sig Start Date Stop Date Ferrous Sulfate 325 (65 Fe) MG 1 tablet Orally Twice a day f or 30 day(s) Feb, MiraLax 17 GM 1 packet mixed with 8 ounces of fluid Orally Once a day for 30 day(s) Feb, Next Appt Details Provider Name:Luann Tinajero, 2020-02 03:00:00 PM, [address] [place], [address], Insurance Providers Payer Name Payer Address Payer Phone Insured Name Patient Relati onship to Insured Coverage Start Date Coverage End Date [facility] [address] [facility] [address] LAKEISHA BARRERA self MEDICAID [employer] [address] [facility] [id number] [place]ISHA [place]OWLAND self
--- OUTSIDE RECORDS SUMMARY | 2020-05-02 10:53 | CCD ---
Author Author [facility] Organization [facility] Address Unknown Phone Unavailable Care Team Providers Care Trust Manager Name Role Phone Luann Tinajero Unavailable PROBLEMS Type Condition ICD9-CM Code [id number] Code Onset Dates Condition S tatus SNOMED Code Notes Problem Obesity complicating in first trimester O99.211 Active 217039894169 Problem Body mass index (BMI) 38.0-38.9, adult Z68.38 A ctive 060718060 Problem Anemia affecting O99.019 Active 23574 008 Problem Constipation K59.00 Active 08679757 Problem Other obesity due to excess calories E66.09 Act fantasma 061049014 Problem Obesity (BMI 35.0-39.9 without comorbidity) E66.01 Active 030903882 Problem Obesity E66.9 Active 048737131 Problem Obesity complicating in second trimester O99.212 Active 255871841782 ALLERGIES Allergen (clinical drug ingredient) Drug/Non Drug Allergy do cumented on EMR Reaction Allergy Type Onset Date Status ragweed Rash Non Drug Allergy Active spiders Hives Non Drug Allergy Active Bee sting Hives Non Drug Allergy Active ENCOUNTERS from 1989 to 2020-04-03 Encounter Location Date Provider Diagnosis [facility] [address] [place] [address] 08 Mar, 2020 Luann Tinajero 34 weeks gestation o f Z3A.34 ; Other obesity due to excess calories E66.09 ; Obesity complicating , third trimester O99.213 ; Maternal care for anti-D [Rh] antibodies, third trimes ter, not applicable or unspecified O36.0130 and SI (sacroiliac) joint dysfunction M53.3 IMMUNIZATIONS Vaccine Route Administration Date Status RHo (D) Immune Globulin 300mcg/1.5mL (RhoGAM) IM Intramuscular D 2019 Administered Influenza (6mo & up) Fluzone IM Intramuscular Jan 02, 2020 Ad ministered SOCIAL HISTORY Tobacco Use: Social History Observation Description Date Details (start date - stop date) Never Smoker Sex Assigned At : Social History Observation Description Sex Assigned At Unknown Language: Question Answer Notes Languages spoken: Estonian BMI Care Goal Follow-Up Question Answer Notes Above Normal BMI Follow-Up Weight monitoring Tobacco Use: Question Answer Notes Are you a: never smoker REASON FOR REFERRAL No Information VITAL SIGNS Weight 220 lbs Mar, Height 62 in Mar, BMI 40.239 kg/m2 Mar, Blood pressure systolic 104 mm Hg Mar, Blood pressure diastolic 74 mm Hg Mar, MEDICATIONS Medication SIG (Take, Route, Frequency, Duration) Notes Start Da te End Date Status Ferrous Sulfate 325 (65 Fe) MG 1 tablet Orally Twice a day for 3 0 day(s) Feb, Active MiraLax 17 GM 1 packet mixed with 8 ounces of fluid Orally Once a day for 30 day(s) Feb, Not-Taking Simvastatin 20 MG 1 tablet in the evening Orally Once a day for 30 da y(s) Not-Taking Vitamin D3 25 MCG (1000 UT) 1 tab orally Daily Active Iron 325 (65 Fe) MG 1 tablet Orally Daily Not-Taking 27-1 MG 1 tablet Orally Once a day Active PROCEDURES No Information RESULTS No Results REASON FOR VISIT 4WK [...] Notes Treatment Notes Treatm ent Clinical Notes Mar, 34 weeks gestation of (ICD-10 - Z3A.34 ) Mar, Other obesity due to excess calories (ICD-10 - E 66.09) Mar, Obesity complicating , third tr imester (ICD-10 - O99.213) Mar, Maternal care for anti-D [Rh ] antibodies, third trimester, not applicable or unspecified (ICD-10 - O36.0130) Mar, SI (sacroiliac) joint dysfunction (ICD-10 - M53. 3) PLAN OF TREATMENT Treatment Notes Test Name Order Date WW OBS FOLLOW UP OR REPEAT 2020-04-03 Next Appt Details 2 Weeks Reason:PN Provider Name:Love Pascual, 2020-04-11 02:00:00 PM, [address] [place], [address], Follow Up:2 WeeksPN Insurance Providers Payer Name Payer Address Payer Phone Insured Name Patient Relati onship to Insured Coverage Start Date Coverage End Date MEDICAID [employer] [address] [facility] [id number] [place] [facility] [address] [facility] [address] [phone] LAKEISHA BARRERA self
--- OUTSIDE RECORDS SUMMARY | 2020-05-02 10:53 | CCD ---
Author Author [facility] Organization [facility] Address Unknown Phone Unavailable Care Team Providers Care Last Model Department Supervisor Name Role Phone Meghana Carrasco Unavailable PROBLEMS Type Condition ICD9-CM Code [id number] Code Onset Dates Condition S tatus SNOMED Code Notes Problem Obesity complicating in first trimester O99.211 Active 265542348395 Problem Body mass index (BMI) 38.0-38.9, adult Z68.38 A ctive 338176046 Problem Other obesity due to excess calories E66.09 Act fantasma 315031761 Problem Anemia affecting O99.019 Active 47245 008 Problem BMI 39.0-39.9,adult Z68.39 Active 504062286 Problem Obesity (BMI 35.0-39.9 without comorbidity) E66.01 Active 127945263 Problem Obesity E66.9 Active 911445150 Problem Obesity complicating in second trimester O99.212 Active 203186124082 Problem Constipation K59.00 Active 59645063 ALLERGIES Allergen (clinical drug ingredient) Drug/Non Drug Allergy do cumented on EMR Reaction Allergy Type Onset Date Status ragweed Rash Non Drug Allergy Active spiders Hives Non Drug Allergy Active Bee sting Hives Non Drug Allergy Active ENCOUNTERS from 1989 to 2020-04-19 Encounter Location Date Provider Diagnosis [facility] [address] [place] [address] Mar, Meghana Carrasco Encounter for superv ision of normal in third trimester Z34.93 IMMUNIZATIONS Vaccine Route Administration Date Status RHo [...] Unknown Language: Question Answer Notes Languages spoken: Ecuadorean BMI Care Goal Follow-Up Question Answer Notes Above Normal BMI Follow-Up Weight monitoring Tobacco Use: Question Answer Notes Are you a: never smoker REASON FOR REFERRAL No Information VITAL SIGNS Weight 217.6 lbs Mar, Weight-kg 98.7 kg Mar, Height 62 in Mar, BMI 39.8 kg/m2 Mar, Blood pressure systolic 104 mm Hg Mar, Blood pressure diastolic 70 mm Hg Mar, MEDICATIONS Medication SIG (Take, Route, Frequency, Duration) Notes Start Da te End Date Status Vitamin D3 25 MCG (1000 UT) 1 tab orally Daily Active Ferrous Sulfate 325 (65 Fe) MG 1 tablet Orally Twice a day for 3 0 day(s) Feb, Active 27-1 MG 1 tablet Orally Once a day Active Iron 325 (65 Fe) MG 1 tablet Orally Daily Not-Taking Simvastatin 20 MG 1 tablet in the evening Orally Once a day for 30 da y(s) Not-Taking MiraLax 17 GM 1 packet mixed with 8 ounces of fluid Orally Once a day for 30 day(s) Feb, Not-Taking PROCEDURES No Information RESULTS No Results REASON FOR VISIT 1WK PN MEDICAL (GENERAL) HISTORY Type Description Date Medical History Hypoglycemia Medical History Anemia, unspecified type Medical History Other hyperlipidemia Surgical History No know Surgical history Hospitalization History childbirth Goals Section No Information Health Concerns No Information MEDICAL EQUIPMENT No Information MENTAL STATUS No Information FUNCTIONAL STATUS No Information ASSESSMENTS Encounter Date Diagnosis Assessment Notes Treatment Notes Treatm ent Clinical Notes Mar, Encounter for supervision of normal in third trimester (ICD-10 - Z34.93) PLAN OF TREATMENT Next Appt Details 1 Week Reason: Provider Name:Luann Tinajero, 2020-04 11:00:00 AM, [address] [place], [address], Insurance Providers Payer Name Payer Address Payer Phone Insured Name Patient Relati onship to Insured Coverage Start Date Coverage End Date [facility] COMMUN[facility] PLAN [facility] [address] [facility] [address] [phone] LAKEISHA BARRERA self MEDICAID [email or web address] [address] [facility] [address] [place] self
--- OUTSIDE RECORDS SUMMARY | 2020-05-02 10:53 | CCD ---
Author Author [facility] Organization [facility] Address Unknown Phone Unavailable Care Team Providers Care Top Icer Name Role Phone Luann Tinajero Unavailable PROBLEMS Type Condition ICD9-CM Code [id number] Code Onset Dates Condition S tatus SNOMED Code Notes Problem Obesity E66.9 Active 641668158 Problem Obesity complicating in second trimester O99.212 Active 709118175293 Problem Obesity complicating in first trimester O99.211 Active 820254562442 Problem Body mass index (BMI) 38.0-38.9, adult Z68.38 A ctive 869529972 Problem Other obesity due to excess calories E66.09 Act fantasma 350888973 Problem Obesity (BMI 35.0-39.9 without comorbidity) E66.01 Active 597769433 ALLERGIES Allergen (clinical drug ingredient) Drug/Non Drug Allergy do cumented on EMR Reaction Allergy Type Onset Date Status ragweed Rash Non Drug Allergy Active spiders Hives Non Drug Allergy Active Bee sting Hives Non Drug Allergy Active ENCOUNTERS from 1989 to 2020-02-19 Encounter Location Date Provider Diagnosis [facility] [address] [place] [address] Dec, Luann Tinajero 21 weeks gestation o f Z3A.21 ; Obesity complicating O99.210 ; Obesity (BMI 35.0-39.9 without comorbidity) E66.01 and Encounter for immunization Z23 IMMUNIZATIONS Vaccine Route Administration Date Status Influenza (6mo & up) Fluzone IM Intramuscular Jan 02, 2020 Ad ministered SOCIAL HISTORY Tobacco Use: Social History Observation Description Date Details (start date - stop date) Never Smoker Sex Assigned At : Social History Observation Description Sex Assigned At Unknown Language: Question Answer Notes Languages spoken: Moroccan Sexual Hx: Question Answer Notes Had sex in the last 12 months (vaginal, oral, or anal)? Yes LMP: 04/21/2019 Have you ever had an STD? No Use protection? No BMI Care Goal Follow-Up Question Answer Notes Above Normal BMI Follow-Up Weight monitoring Tobacco Use: Question Answer Notes Are you a: never smoker REASON FOR REFERRAL No Information VITAL SIGNS Weight 217.0 lbs Dec, Height 62" in Dec, BMI 39.69 kg/m2 Dec, Blood pressure systolic 118 mm Hg Dec, Blood pressure diastolic 74 mm Hg Dec, MEDICATIONS Medication SIG (Take, Route, Frequency, Duration) Notes Start Da te End Date Status Simvastatin 20 MG 1 tablet in the evening Orally Once a day for 30 da y(s) Not-Taking Iron 325 (65 Fe) MG 1 tablet Orally Daily Active 27-1 MG 1 tablet Orally Once a day Active Vitamin D3 25 MCG (1000 UT) 1 tab orally Daily Active PROCEDURES Procedure Date Ordered Result Body Site Immunization: Fluzone (6mo & older) 0.5mL IM (Influenza) 2019-12 N/A RESULTS Component Value Reference Range Type and Screen (D Rh Antibody Screen) Reviewed date:02/20/2020 12:58:15 Interpretation: Performing Lab:[facility] [address] [facility] [address] , ,[place] [address] BLOOD TYPE O NEGATIVE AB SCREEN (INDIRECT ERASMO)VIS NEGATIVE CBC - Complete Blood Count Reviewed date:02/20/2020 17:34:34 Interpretation: Performing Lab:[facility] [address] [facility] [address] , ,[place] [address] WHITE BLOOD COUNT 11.4 4.0-10.0 RED BLOOD COUNT 3.95 4.00-5.40 HEMOGLOBIN 9.6 12.0-15.5 HEMATOCRIT 32.4 36.0-47.0 MEAN CORPUSCULAR VOLUME 82.0 80.0-96.0 MEAN CORPUSCULAR HEMOGLOBIN 24.3 27.0-33.0 MEAN CORPUSCULAR HGB CONC 29.6 32.0-36.5 RED CELL DISTRIBUTION WIDTH 17.2 11.5-14.5 PLATELET COUNT, AUTOMATED 165 150-450 Glucose Challenge Test 1 Hour Reviewed date:02/20/2020 08:02:37 Interpretation: Performing Lab:[facility], [facility] [address] [facility] [address] , ,[place] [address] GLUCOSE CHALLENGE TEST 1 HOUR 85 LESS THAN 140 RHOGAM Reviewed date:02/20/2020 12:58:23 Interpretation: Performing Lab:[facility], [place] [address] RHOGAM TRANSFUSED PRODUCT: RHOGAM COUNT: 1 REASON FOR VISIT 4WK PN MEDICAL (GENERAL) [...] Notes Treatment Notes Treatm ent Clinical Notes Dec, 21 weeks gestation of (ICD-10 - Z3A.21 ) Dec, Obesity complicating (ICD-10 - O99.210 ) Dec, Obesity (BMI 35.0-39.9 without comorbidity) (ICD -10 - E66.01) Dec, Encounter for immunization (ICD-10 - Z23) PLAN OF TREATMENT Treatment Notes Test Name Order Date Type and Screen (D Rh Antibody Screen) 2020-02-19 CBC - Complete Blood Count 2020-02-19 Glucose Challenge Test 1 Hour 2020-02-19 RHOGAM 2020-02-19 Next Appt Details 4=6wk Reason:PN Provider Name:Luann Tinajero, 2020-02 03:00:00 PM, [address] [place], [address], Follow Up:4=6wkPN Insurance Providers Payer Name Payer Address Payer Phone Insured Name Patient Relati onship to Insured Coverage Start Date Coverage End Date [facility] [employer] [address] [facility] [phone] LAKEISHA BARRERA [facility] MEDICAID RoomActually[employer]O [employer] [address] [place] [address] LAKEISHA ROWLAND self
--- OUTSIDE RECORDS SUMMARY | 2020-05-02 10:53 | CCD ---
Author Author [facility] Organization [facility] Address Unknown Phone Unavailable Care Team Providers Care Ropeman Name Role Phone Love Pascual Unavailable PROBLEMS Type Condition ICD9-CM Code QGL50-JG Code Onset Dates Condition S tatus W/U Status Risk SNOMED Code Notes Problem Obesity complicating in first trimester O99.211 Active confirmed 810356799761 Problem Body mass index (BMI) 38.0-38.9, adult Z68.38 A ctive confirmed 106463031 Problem Other obesity due to excess calories E66.09 Act fantasma confirmed 258220723 Problem Anemia affecting O99.019 Active confirmed 52333918 Problem BMI 39.0-39.9,adult Z68.39 Active confirmed 237949557 Problem Obesity (BMI 35.0-39.9 without comorbidity) E66.01 Active confirmed 678020821 Problem Obesity E66.9 Active confirmed 758990336 Problem Obesity complicating in second trimester O99.212 Active confirmed 756573272426 Problem Constipation K59.00 Active confirmed 3898721 8 ALLERGIES Allergen (clinical drug ingredient) Drug/Non Drug Allergy do cumented on EMR Reaction Allergy Type Onset Date Status ragweed Rash Non Drug Allergy Active spiders Hives Non Drug Allergy Active Bee sting Hives Non Drug Allergy Active ENCOUNTERS from 1989 to 2020-04-25 Encounter Location Date Provider Diagnosis [facility] [address] [place] [address] Mar, Love Pascual Obesity complicating , third trimester O99.213 ; 36 weeks gestation of Z3A.36 ; Other obesity due to excess calories E66.09 and BMI 39.0-39.9,adult Z68.39 IMMUNIZATIONS Vaccine Route Administration Date Status RHo [...] Unknown Language: Question Answer Notes Languages spoken: Chadian BMI Care Goal Follow-Up Question Answer Notes Above Normal BMI Follow-Up Weight monitoring Tobacco Use: Question Answer Notes Are you a: never smoker REASON FOR REFERRAL No Information VITAL SIGNS Weight 218.6 lbs Mar, Height 62 in Mar, BMI 39.982 kg/m2 Mar, Blood pressure systolic 106 mm Hg Mar, Blood pressure diastolic 72 mm Hg Mar, MEDICATIONS Medication SIG (Take, Route, Frequency, Duration) Notes Start Da te End Date Status Ferrous Sulfate 325 (65 Fe) MG 1 tablet Orally Twice a day for 3 0 day(s) Feb, Active Simvastatin 20 MG 1 tablet in the evening Orally Once a day for 30 da y(s) Not-Taking Iron 325 (65 Fe) MG 1 tablet Orally Daily Not-Taking 27-1 MG 1 tablet Orally Once a day Active Vitamin D3 25 MCG (1000 UT) 1 tab orally Daily Active MiraLax 17 GM 1 packet mixed with 8 ounces of fluid Orally Once a day for 30 day(s) Feb, Not-Taking PROCEDURES No Information RESULTS Component Value Reference Range GROUP B STREP CULTURE Reviewed date:04/15/2020 08:51:37 Interpretation: Performing Lab:[facility], [facility] [address] [facility] [address] , ,[place] [address] REASON FOR VISIT 4WK PN MEDICAL (GENERAL) [...] Treatment Notes Treatm ent Clinical Notes Mar, Obesity complicating , third tr imester (ICD-10 - O99.213) Mar, 36 weeks gestation of (ICD-10 - Z3A.36 ) Mar, Other obesity due to excess calories (ICD-10 - E 66.09) Mar, BMI 39.0-39.9,adult (ICD-10 - Z68.39) PLAN OF TREATMENT Next Appt Details 1 Week Reason: Follow Up:1 Weekprenatal Insurance Providers Payer Name Payer Address Payer Phone Insured Name Patient Relati onship to Insured Coverage Start Date Coverage End Date [facility] [address] [facility] [phone] LAKEISHA BARRERA MEDICAID [facility] [address] [facility] [id number] LAKEISHA ROWLAND self
--- OUTSIDE RECORDS SUMMARY | 2020-05-02 10:54 | CCD ---
Author Author [facility] Organization [facility] Address Unknown Phone Unavailable Care Team Providers Care Demolitionist Name Role Phone Mica Smith [employer] MECHANIC Unavailable Unavailable Sydnee Smith [employer]S MECHANIC-BC Unavailable Unavailable Sydnee Smith ELECTRONIC IND[employer]AL CONTROLS MECHANIC-BC Unavailable Unavailable Sydnee Smith ELECTRONIC IND[employer]RIAL CONTROLS MECHANIC-BC Unavailable Unavailable Sydnee Smith ELECTRONIC INDUSTRIAL CONTROLS MECHANIC-BC Unavailable Unavailable Sydnee Smith ELECTRONIC INDUSTRIAL CONTROLS MECHANIC-BC Unavailable Unavailable Sydnee Smith ELECTRONIC INDUSTRIAL CONTROLS MECHANIC-BC Unavailable Unavailable Sydnee Smith ELECTRONIC INDUSTRIAL CONTROLS MECHANIC-BC Unavailable Unavailable Sydnee Smith ELECTRONIC INDUSTRIAL CONTROLS MECHANIC-BC Unavailable Unavailable Sydnee Smith ELECTRONIC INDUSTRIAL CONTROLS MECHANIC-BC Unavailable Unavailable Sydnee Smith ELECTRONIC INDUSTRIAL CONTROLS MECHANIC-BC Unavailable Unavailable Sydnee Smith ELECTRONIC IND[employer]RIAL CONTROLS MECHANIC-BC Unavailable Unavailable Smith, F Mica [employer]AL CONTROLS MECHANIC-BC Unavailable Unavailable Smith, F Mica E[employer]RONIC INDUSTRIAL CONTROLS MECHANIC-BC Unavailable Unavailable Smith, F Mica ELECTRONIC INDUSTRIAL CONTROLS MECHANIC-BC Unavailable Unavailable Smith, F Mica ELECTRONIC INDUST[employer]AL CONTROLS MECHANIC-BC Unavailable Unavailable Smith, F Mica ELECTRONIC INDUSTRIAL CONTROLS MECHANIC-BC Unavailable Unavailable Smith, F Mica ELECTRONIC INDUSTRIAL CONTROLS MECHANIC-BC Unavailable Unavailable Smith, F Mica ELECTRONIC INDUSTRIAL CONTROLS MECHANIC-BC Unavailable Unavailable Smith, F Mica ELECTRONIC INDUSTRIAL CONTROLS MECHANIC-BC Unavailable Unavailable Smith, F Mica ELECTRONIC INDUSTRIAL CONTROLS MECHANIC-BC Unavailable Unavailable Smith, F Mica ELECTRONIC INDUSTRIAL CONTROLS MECHANIC-BC Unavailable Unavailable Smith, F Mica E[employer]AL CONTR[employer]S MECHANIC-BC Unavailable Unavailable Re-disclosure Warning The records that you are about to access may contain information from federally-assisted alcohol or drug abuse programs. If such information is present, then the following federally mandated warning applies: This information has been disclosed to you from records protected by federal confidentiality rules (42 CFR part 2). The federal rules prohibit you from making any further disclosure of this information unless further disclosure is expressly permitted by the written consent of the person to whom it pertains or as otherwise permitted by 42 CFR part 2. A general authorization for the release of medical or other information is NOT sufficient for this purpose. The Federal rules restrict any use of the information to criminally investigate or prosecute any alcohol or drug abuse patient.The records that you are about to access may contain highly sensitive health information, the redisclosure of which is protected by Article 27-F of the [facility] Public Health law. If you continue you may have access to information: Regarding HIV / AIDS; Provided by facilities licensed or operated by the [facility] Office of Mental Health; or Provided by the [facility] Office for People With Developmental Disabilities. If such information is present, then the following [facility] mandated warning applies: This information has been disclosed to you from confidential records which are protected by state law. State law prohibits you from making any further disclosure of this information without the specific written consent of the person to whom it pertains, or as otherwise permitted by law. Any unauthorized further disclosure in violation of state law may result in a fine or custodial sentence or both. A general authorization for the release of medical or other information is NOT sufficient authorization for further disc losure. Allergies and Adverse Reactions Type Description Substance Reaction Status Data Source(s ) ragweed ragweed ragweed Rash Active eCW1 ([facility]) spiders spiders spiders Hives Active eCW1 ([facility] hospital) Bee sting Bee sting Bee sting Hives Active eCW1 (Critical [facility] hospital) Family History Family Member Name Family Member Gender Family Member Status Date o f Status Description Data Source(s) Unknown Unknown Problem MEDENT ([facility], ) Unknown Unknown Problem MEDENT ([facility], ) Unknown Unknown Problem MEDENT ([facility], ) Encounters Encounter Providers Location Date Indications Data Source(s ) ( ESTOB) [facility] [address] [place] [address] 04/18/2020 12:00:00 AM EST eCW1 ([facility]) ( ESTOB) [facility] [address] [place] [address] 04/11/2020 12:00:00 AM EST eCW1 ([facility]) ( ESTOB) [facility] [address] [place] [address] 03/28/2020 12:00:00 AM EST eCW1 ([facility]) ( ESTOB) [facility] [address] [place] [address] 02/29/2020 12:00:00 AM EST eCW1 ([facility]) Unknown [address] [facility] [address] 02/20/2020 12:00:00 AM EST eCW1 ([facility]) [place] [address] [facility] [address] 02/04/2020 12:00:00 AM EST eCW1 ([facility]) ( ESTOB) [facility] [address] [place] [address] 01/30/2020 12:00:00 AM EST eCW1 ([facility]) ( ESTOB) [facility] [address] [place] [address] 01/02/2020 12:00:00 AM EDT eCW1 ([facility]) [place] [address] [facility] [address] 12/11/2019 12:00:00 AM EDT [facility]CW1 [facility] Out[facility] Attender: Mica PETERS 10/27/2019 09: 17:00 PM EDT [facility] Outpatient Attender: GURU PETERS 10/27/2019 09:16:59 PM EDT [facility] Outpatient Attender: Mica PETERS 10/22/2019 09: 40:59 AM EDT [facility] Outpatient Attender: Mica KIDD FP 10/22/2019 09: 40:01 AM EDT [facility] Outpatient Attender: Mica PETERS 10/22/2019 09: 39:00 AM EDT [facility] ( ESTOB) [facility] Est OB [address] [place] [address] 10/11/2019 12:00:00 AM EDT eCW1 ([facility]) [place] [address] [facility] [address] 10/09/2019 12:00:00 AM EDT eCW1 ([facility]) Outpatient Attender: Mica PETERS 09/24/2019 10: 24:02 AM EDT [facility] Outpatient Attender: GURU PETERS 09/24/2019 09:50:00 AM EDT [facility] Outpatient Attender: Mica PETERS 09/23/2019 10: 52:01 PM EDT [facility] Outpatient Attender: GURU PETERS 09/23/2019 10:52:00 PM EDT [facility] Outpatient Attender: GURU PETERS 09/23/2019 10:51:02 PM EDT [facility] Outpatient Attender: Mica PETERS 09/23/2019 10: 51:01 PM EDT [facility] Outpatient Attender: GURU PETERS 09/19/2019 09:59:01 AM EDT [facility] Outpatient Attender: GURU PETERS 09/18/2019 01:56:00 PM EDT [facility] Outpatient Attender: GURU PETERS 09/18/2019 01:55:00 PM EDT [facility] Outpatient Attender: GURU Smith [employer] MECHANIC FP 09/18/2019 01:54:01 PM EDT [facility] Outpatient Attender: GURU Smith [employer]S MECHANIC FP 09/18/2019 12:54:00 PM EDT [facility] Outpatient Attender: GURU Smith [employer] MECHANIC FP 09/18/2019 08:18:03 AM EDT [facility] Outpatient Attender: Mica Luis GARVEY-BC FP 09/18/2019 08: 17:01 AM EDT [facility] Outpatient Attender: GURU Smith [employer] MECHANIC FP 09/17/2019 01:05:00 PM EDT [facility] Outpatient Attender: GURU Smith [employer] MECHANIC FP 06/20/2019 10:40:00 AM EDT [facility] Outpatient Attender: Mica Luis GARVEY-BC FP 06/07/2019 01: 46:01 PM EDT [address] [address] 05/03/2019 12:00:00 AM EST eCW1 ([facility]) Immunizations Vaccine Date Status Description Data Source(s) RHo (D) Immune Globulin 300mcg/1.5mL (RhoGAM) 02/29/2020 03: 16:00 PM EST completed eCW1 ([facility]) RHo (D) Immune Globulin 300mcg/1.5mL (RhoGAM) 02/29/2020 03: 16:00 PM EST completed eCW1 ([facility]) RHo (D) Immune Globulin 300mcg/1.5mL (RhoGAM) 02/29/2020 03: 16:00 PM EST completed eCW1 ([facility]) RHo (D) Immune Globulin 300mcg/1.5mL (RhoGAM) 02/29/2020 03: 16:00 PM EST completed eCW1 ([facility]) New in 2011. IIV4 01/02/2020 08:46:00 AM EDT completed eCW1 ([facility]) New in 2011. IIV4 01/02/2020 08:46:00 AM EDT completed eCW1 ([facility]) New in 2011. IIV4 01/02/2020 08:46:00 AM EDT completed eCW1 ([facility]) New in 2011. IIV4 01/02/2020 08:46:00 AM EDT completed eCW1 ([facility]) New in 2011. IIV4 01/02/2020 08:46:00 AM EDT completed eCW1 ([facility]) New in 2011. IIV4 01/02/2020 08:46:00 AM EDT completed eCW1 ([facility]) New in 2011. IIV4 01/02/2020 08:46:00 AM EDT completed eCW1 ([facility]) New in 2011. IIV4 01/02/2020 08:46:00 AM EDT completed eCW1 ([facility]) New in 2011. IIV4 01/02/2020 08:46:00 AM EDT completed eCW1 ([facility]) Medications Medication Brand Name Start Date Product Form Dose Route Admi nistrative Instructions Pharmacy Instructions Status Indications Reaction Description Data Source(s) 325 mg (65 mg iron) 02/21/2020 12:00:00 AM EST tablet, delayed release (DR/EC) 60 TAKE ONE TABLET BY MOUTH TWICE A DAY TAKE ONE TA BLET BY MOUTH TWICE A DAY SOLD: 02/25/2020 [facility] POLYETHYLENE GLYCOL 3350 142 MG/ML Oral Solution [Snow lax] MiraLax 17 GM MiraLax 17 GM 02/20/2020 12:00:00 AM EST 1.0 {packet_mixed_with_8_ou nces_of_fluid} suspended MiraLax 17 GM eCW1 ([facility]) ferrous sulfate 325 MG Delayed Release O ral Tablet Ferrous Sulfate 325 (65 Fe) MG Ferrous Sulfate 325 (65 Fe) MG 02/20/2020 12:00:00 AM EST 1. 0 {tablet} active Ferrous Sulfate 325 (65 Fe) MG eCW1 ([facility]) ferrous sulfate 325 MG Delayed Release O ral Tablet Ferrous Sulfate 325 (65 Fe) MG Ferrous Sulfate 325 (65 Fe) MG 02/20/2020 12:00:00 AM EST 1. 0 {tablet} active Ferrous Sulfate 325 (65 Fe) MG eCW1 ([facility]) ferrous sulfate 325 MG Delayed Release O ral Tablet Ferrous Sulfate 325 (65 Fe) MG Ferrous Sulfate 325 (65 Fe) MG 02/20/2020 12:00:00 AM EST 1. 0 {tablet} active Ferrous Sulfate 325 (65 Fe) MG eCW1 ([facility]) POLYETHYLENE GLYCOL 3350 142 MG/ML Oral Solution [Snow lax] MiraLax 17 GM MiraLax 17 GM 02/20/2020 12:00:00 AM EST 1.0 {packet_mixed_with_8_ou nces_of_fluid} active MiraLax 17 GM eCW1 ([facility]) ferrous sulfate 325 MG Delayed Release O ral Tablet Ferrous Sulfate 325 (65 Fe) MG Ferrous Sulfate 325 (65 Fe) MG 02/20/2020 12:00:00 AM EST 1. 0 {tablet} active Ferrous Sulfate 325 (65 Fe) MG eCW1 ([facility]) POLYETHYLENE GLYCOL 3350 142 MG/ML Oral Solution [Snow lax] MiraLax 17 GM MiraLax 17 GM 02/20/2020 12:00:00 AM EST 1.0 {packet_mixed_with_8_ou nces_of_fluid} suspended MiraLax 17 GM eCW1 ([facility]) ferrous sulfate 325 MG Delayed Release O ral Tablet Ferrous Sulfate 325 (65 Fe) MG Ferrous Sulfate 325 (65 Fe) MG 02/20/2020 12:00:00 AM EST 1. 0 {tablet} active Ferrous Sulfate 325 (65 Fe) MG eCW1 ([facility]) POLYETHYLENE GLYCOL 3350 142 MG/ML Oral Solution [Snow lax] MiraLax 17 GM MiraLax 17 GM 02/20/2020 12:00:00 AM EST 1.0 {packet_mixed_with_8_ou nces_of_fluid} suspended MiraLax 17 GM eCW1 ([facility]) POLYETHYLENE GLYCOL 3350 142 MG/ML Oral Solution [Snow lax] MiraLax 17 GM MiraLax 17 GM 02/20/2020 12:00:00 AM EST 1.0 {packet_mixed_with_8_ou nces_of_fluid} suspended MiraLax 17 GM eCW1 ([facility]) 875 mg 12/01/2019 12:00:00 AM EDT tablet 14 TAKE ONE TABLET BY MOUTH EVERY 12 HOURS FOR 7 DAYS TAKE ONE TABLET BY MOUTH EVERY 12 HOURS FOR 7 DAYS YANETH [facility] 325 mg (65 mg iron) 09/24/2019 12:00:00 AM EDT tablet 60 TAKE ONE TABLET BY MOUTH TWICE A DAY TAKE ONE TABLET BY MOUTH TWICE A DAY SOLD: 09/27/2019 [facility] 25 mcg (1,000 unit) 09/24/2019 12:00:00 AM EDT capsule 30 TAKE ONE CAPSULE BY MOUTH EVERY DAY TAKE ONE CAPSULE BY MOUTH EVERY DAY SOLD: 09/27/2019 [facility] 875-125 mg 03/09/2019 12:00:00 AM EST tablet 20 TAKE ONE TABLET BY MOUTH TWICE A DAY FOR 10 DAYS TAKE ONE TABLET BY MOUTH TWICE A DAY FOR 10 DAYS SOLD: 03/09/2019 [facility] 25 mcg (1,000 unit) 01/10/2019 12:00:00 AM EDT capsule 30 TAKE ONE CAPSULE BY MOUTH EVERY DAY TAKE ONE CAPSULE BY MOUTH EVERY DAY SOLD: 06/30/2019 [facility] 325 mg (65 mg iron) 01/10/2019 12:00:00 AM EDT tablet, delayed release (DR/EC) 60 TAKE ONE TABLET BY MOUTH TWICE A DAY TAKE ONE TA BLET BY MOUTH TWICE A DAY SOLD: 06/30/2019 [facility] 20 mg 01/10/2019 12:00:00 AM EDT tablet 30 TAKE ONE TABLET BY MOUTH EVERY DAY TAKE ONE TABLET BY MOUTH EVERY DAY SOLD: 06/30/2019 [facility] Insurance Providers Payer name Policy type / Coverage type Policy ID Covered constitution party ID Covered constitution party's relationship to cary Policy Cray Plan Information EMEDYENIFER [id number] SP [id number] [facility] [id number] SP [id number] [facility](MCAID) O [id number] S [id number] [facility] COMMUNITY PLAN [facility] [id number] SP [id number] [facility](MCAID) O [id number] S [id number] [facility] Care - [facility] Community Plan P [id number] S [id number] Medicaid S [id number] S [id number] Managed Care - [facility] Community Plan P [id number] S [id number] MEDICAID [id number] SP [id number] [facility] COMMUNITY PLAN MCDHMO [id number] SP [id number] Managed Care - [facility] Community Plan P [id number] S [id number] Medicaid S [id number] S [id number] Managed Care - Community Plan [facility] P [id number] S [id number] Medicaid S [id number] S [id number] Medicaid S [id number] S [id number] Managed Care - Community Plan [facility] P [id number] S [id number] Medicaid S [id number] S [id number] [facility] [id number] SP [id number] [facility] Jaimie/MCR Health Maintenance Organization (HMO) Self [facility] COMMUNITY PLAN MCDO [id number] SP [id number] MEDICAID JAIMIE [id number] S [id number] [facility] MEDICAID JAIMIE HMO [id number] S [id number] [facility](MCAID) P [id number] S [id number] [facility](MCAID) P UNAVAILABLE S UNAVAILABLE SELF PAY UNAVAILABLE SP UNAVAILA BLE [facility] COMMUNITY PLAN MCDO [id number] SP [id number] Problems, Conditions, and Diagnoses Code Display Name Description Problem Type Effective Dates Data Source(s) Z68.39 [id number] BMI 39.0-39.9,adult Problem 04/11/2020 12:00 :00 AM EST eCW1 ([facility]) K59.00 Constipation Constipation Problem 02/20/2020 12:00:00 A M EST eCW1 ([facility]) O99.019 Anemia in mother complicating , childbirth AND/OR puerperium Anemia affecting Problem 02/20/2020 12:00:00 AM EST eCW1 ( [facility]) O99.212 Maternal obesity complicatin g , childbirth and the puerperium, antepartum Obesity complicating in second trimester Problem 01/30/2020 12:00:00 AM EST eCW1 ([facility]) E66.9 Obesity Obesity Problem 01/02/2020 12:00:00 AM ED T eCW1 ([facility]) E66.01 Morbid obesity Obesity (BMI 35.0-39.9 without comorbid ity) Problem 01/02/2020 12:00:00 AM EDT eCW1 ([facility]) E66.09 [id number] Other obesity due to excess calories Prob sarbjit 10/11/2019 12:00:00 AM EDT eCW1 ([facility]) Z68.38 [id number] Body mass index (BMI) 38.0-38.9, adult Pr oblem 10/11/2019 12:00:00 AM EDT eCW1 ([facility]) O99.211 [id number] Obesity complicating in first t rimester Problem 10/11/2019 12:00:00 AM EDT eCW1 ([facility]) [id number] Anemia, unspecified Anemia, unspecified 020 08:16:55 AM EDT [facility] Surgeries/Procedures Procedure Description Date Indications Data Source(s) Injection: RhoGAM 300mcg/1.5mL IM (Rho [D] Immune Globulin H uman) 02/29/2020 12:00:00 AM EST eCW1 ([facility]) INFLUENZA VIRUS VACC SPLIT PRSRV FREE 3 YRS/> IM 01/01 12:00:00 AM EDT eCW1 ([facility]) Results ID Date Data Source GROUP B STREP CULTURE 04/11/2020 12:00:00 AM EST eCW1 ([facility]) Name Value Range Interpretation Code Description Data Marissa rce(s) Supporting Document(s) GROUP B STREP CULTURE eCW1 ([facility]) ID Date Data Source RHOGAM 02/19/2020 12:00:00 AM EST eCW1 ([facility]) Name Value Range Interpretation Code Description Data Marissa rce(s) Supporting Document(s) TRANSFUSED PRODUCT: RHOGAM CO UNT: 1 RHOGAM eCW1 ([facility]) ID Date Data Source Glucose Challenge Test 1 Hour 02/19/2020 12:00:00 AM EST eCW 1 ([facility]) Name Value Range Interpretation Code Description Data Marissa rce(s) Supporting Document(s) 85 LESS THAN 140 GLUCOSE CHALLENGE TEST 1 HOUR eCW1 ([facility]) ID Date Data Source CBC - Complete Blood Count 02/19/2020 12:00:00 AM EST eCW1 ( [facility]) Name Value Range Interpretation Code Description Data Marissa rce(s) Supporting Document(s) 11.4 4.0-10.0 WHITE BLOOD COUNT eCW1 ([facility]) 3.95 4.00-5.40 RED BLOOD COUNT eCW1 ([facility]) 82.0 80.0-96.0 MEAN CORPUSCULAR VOLUME e CW1 ([facility]) 9.6 12.0-15.5 HEMOGLOBIN eCW1 ([facility]) 32.4 36.0-47.0 HEMATOCRIT eCW1 ([facility]) 165 150-450 PLATELET COUNT, AUTOMATED eCW1 ([facility]) 29.6 32.0-36.5 MEAN CORPUSCULAR HGB CONC eCW1 ([facility]) 24.3 27.0-33.0 MEAN CORPUSCULAR HEMOGLOB IN eCW1 ([facility]) 17.2 11.5-14.5 RED CELL DISTRIBUTION WID TH eCW1 ([facility]) ID Date Data Source Type and Screen (D Rh Antibody Screen) 02/19/2020 12:00:00 A M EST eCW1 ([facility]) Name Value Range Interpretation Code Description Data Marissa rce(s) Supporting Document(s) NEGATIVE AB SCREEN (INDIRECT COOMB S)VIS eCW1 ([facility]) O NEGATIVE BLOOD TYPE eCW1 (Replaced by [facility]) ID Date Data Source Type and Screen Prenatal1 12/31/2019 05:21:01 AM EDT eCW1 ([facility]) Name Value Range Interpretation Code Description Data Marissa rce(s) Supporting Document(s) NEGATIVE eCW1 ([facility]) ID Date Data Source HBSAG 12/31/2019 05:20:55 AM EDT eCW1 ([facility]) Name Value Range Interpretation Code Description Data Marissa rce(s) Supporting Document(s) NEGATIVE eCW1 ([facility]) ID Date Data Source HEPATITIS C ANTIBODY INDEX 12/31/2019 05:20:51 AM EDT W1 ( [facility]) Name Value Range Interpretation Code Description Data Marissa rce(s) Supporting Document(s) 0.2 eCW1 ([facility]) ID Date Data Source CHLAMYDIA & GC DNA AMPLIFICAT 12/31/2019 05:20:40 AM EDT eCW 1 ([facility]) Name Value Range Interpretation Code Description Data Marissa rce(s) Supporting Document(s) Chlamydia trachomatis rRNA [Presence] in Unspecified specimen by Probe and target amplification method NEGATIVE eCW1 ([facility]) ID Date Data Source URINE CULTURE 12/31/2019 05:20:36 AM EDT eCW1 ([facility]) Name Value Range Interpretation Code Description Data Marissa rce(s) Supporting Document(s) eCW1 ([facility]) ID Date Data Source RUBELLA IMMUNE STATUS IgG 12/31/2019 05:20:29 AM EDT eCW1 ([facility]) Name Value Range Interpretation Code Description Data Marissa rce(s) Supporting Document(s) IMMUNE eCW1 ([facility]) ID Date Data Source SYPHILIS ANTIBODY (RPR SCREEN) 12/31/2019 05:20:18 AM EDT eC W1 ([facility]) Name Value Range Interpretation Code Description Data Marissa rce(s) Supporting Document(s) NONREACTIVE eCW1 (Replaced by [facility]) ID Date Data Source [id number] 12/31/2019 05:20:14 AM EDT eCW1 ([facility]) Name Value Range Interpretation Code Description Data Marissa rce(s) Supporting Document(s) eCW1 ([facility]) ID Date Data Source [id number] 12/13/2019 12:00:00 AM EDT [facility] Domingo Zuniga MD Patient Name: CHICHO [id number] [facility] Date of : [birth year][address] [address] Date of Exam: 12/13/2019PH#: Fax: [phone] EXAM: US OB 2ND & 3RD TRIMESTER, COMPLETE- SINGLE FETUSCLINICAL INFORMATION: Supervision of . 6, Para 4, Ab 1LMP: 08/02/2019 = 19 weeks 0 days, MECHE(LMP) = 05/08/2020Today's sono findings = 19 weeks 4 days, MECHE (today's sono) = 05/04/2020Fetal Number: SingletonFetal Position: BreechFetal Heart Rate: 142 BPMPlacental Position: Posterior, Grade 1Amniotic Fluid Volume: NormalCervix Length: 6.4 cmFETAL MEASUREMENTS:BPD: 4.7 cm = 20 weeks 2 daysHC: 16.6 cm = 19 weeks 2 daysAC: 13.8 cm = 19 weeks 1 dayFL: 3.1 cm = 19 weeks 5 daysHL: 2.9 cm = 19 weeks 2 daysEstimated Weight: 292 grams, 10 ounces, 42nd percentileThe following structures are visualized and are unremarkable:Cranium, cavum, cerebellum, posterior fossa-cisterna magna, choroid plexus,midline falx, lateral marshall tricles, orbits, face-profile, face-lips/mouth,neck, 4-chamber heart, RVOT, LVOT, diaphragm, stomach, kidneys, bladder,abdominal wall, cord insertion, umbilical arteries, 3-vessel cord, colorDoppler, spine and upper and lower extremities.Accredited by the [employer] in Obstetrical Ultrasound.RADHA Norton/Christian you for referring LAKEISHA CROOKS to our office. Electronically Signed - AVE MAZA DO 12/14/19 15:40 Name Value Range Interpretation Code Description Data Marissa rce(s) Supporting Document(s) ID Date Data Source [id number] 09/24/2019 09:51:06 AM EDT [facility] Measurements & CalculationsHeight: 62 inches (5 ft. 2 in.) 157.48 cm Weight: 211.6 pounds 96.18 kg Body Mass Index (BMI): 38.84BMI Interpretation: ObeseBody Surface Area (BSA): 1.96Weight Management Education Done (Nutrition/Physical Activity)Vital SignsTemperature: 98.7FPulse Rate: 86 beats/minuteRespiratory Rate: 18 respirations/minuteBlood Pressure: 106/77 O2 Saturation: 100% Vital Signs performed by: Marie Lyons MA, September 24, 2019 9:54 AMInitial Intake Information From: patientRoom #: 13Infectious Disease / Travel ScreeningRecent travel for you or any close contacts? NoHave you had any close contact with anyone diagnosed with or under investigation for COVID-19 (coronavirus)? NoFever? NoRespiratory symptoms: cough, cold, congestion, shortness of breath, difficulty breathing? NoLoss of smell? NoLoss of taste? NoSmoking, Tobacco, Vaping or Smoke Exposure StatusSmoke Status: former smokerTobacco Use: NoDo you vape? NoMenstrual HistoryAny possibility of ? YesComments: currently 7 weeks pregHealthcare HistorySince your last office visit...Have you been admitted to the hospital? NoHave you been to an emergency room (ER) or urgent care clinic? No - Eye; itchy/swollen- [facility] ERHave you seen another healthcare provider? Yes [facility] Have you seen a dentist? No - in house referralIntake performed by: Marie Lyons MA, September 24, 2019 9:53 AMRate Your HealthIn general, would you say your health is? GoodPain AssessmentAre you currently having any pain which... You would like your provider to address? No Affects your activity level? NoDepression Screening - PHQ-2Over the last two weeks, have you... Had little interest or pleasure in doing things? Not at all Been feeling down, depressed, or hopeless? Not at all PHQ-2 Score: 0Anxiety Screening - SCOUT- 2Over the last two weeks, have you been... Feeling nervous, anxious, or on edge? Not at all Unable to stop or control worrying? Not at all SCOUT-2 Score: 0Screening, Brief Intervention, & Referral to Treatment (SBIRT)Pre-Screening Questions How many times have you have 4 or more drinks in a day? 0How many times have you used an illegal drug or used a prescription medication for a non- medical reason? 0Performed by: Marie Lyons MA, September 24, 2019 9:53 AMPatient History Medical History:hypoglycemiaanemiaSurgical History:Family History:Asthma (Mother)Diabetes (Maternal Grandmother)Asthma (Brother)lupus (mother)Social/Personal History: Chief Complaintlab results History of Present Illness (HPI)7 weeks . Has appointment with OB in 3 weeks. No issues.Takes iron for iron deficency and Vitamin D for low Vitamin D along with prenatl vitamin.Has not smoked in 4 years.No cats at home.Feeling well.On simvastatin.HPI performed by: Gumaro Renee MD, September 24, 2019 10:20 AMTransitions of Care InboundProblem ReviewProblem List was reviewed and/or updated during this visit.Medication Reconciliation & ReviewMedication List was reviewed and/or updated during this visit, including review of any trwq-rlt-opdjxiu medications, herbal therapies, and/or supplements.Allergy ReviewAllergy List was reviewed and/or updated during this visit.Adult Preventive CareProvider Calculated and Reviewed all Clinical Protocols for patient today. Labs/Meds/Other Counseling-Nutrition and Physical Activity:BMI Interpretation: Obese (09/24/2019) Counseling: Done (09/24/2019) Physical Activity: Done (09/24/2019)Review of Systems General: Denies dizziness, fatigue. Cardiovascular: Denies chest pain. Respiratory: Denies shortness of breath. Gastrointestinal: Denies constipation. Genitourinary: Denies pain with urination, burning with urination. Physical ExamGeneral Appearance: well nourished, well hydrated, no acute distressRespiratory, Auscultation: clear to auscultation bilaterally; no rales, rhonchi, or wheezesRespiratory, Effort: no intercostal retractions or use of accessory musclesCardiovascular, Auscultation: S1, S2 audible; no murmur, rub, or gallop; RRRGait & Station: normalSkin, Inspection: no rashes, lesions, or ulcerationsOrientation: oriented to time, place, and personMood & Affect: no depression, anxiety, or agitationJudgment & Insight: intactCare Management Plan Transitions of CareInboundRate Your HealthIn general, would you say your health is? GoodAssessment & Plan Prob lems:Assessed:Anemia, unspecified (XJQ78-P73.9) Assessment: Instructions: Continue iron.I don't think that iron overload is likely to be an issue. This was low at last check so I don't think that the addition of a vitamin will push her over the limit.OB will likely keep an eye on this.Hyperlipidemia, unspecified (QEA71-S86.5) Assessment: Instructions: Stop simvastatin and recheck after delivery.Diet and eercise.Patient Instructions/Care Plan: Anemia- unspecified: Continue iron.I don't think that iron overload is likely to be an issue. This was low at last check so I don't think that the addition of a vitamin will push her over the limit.OB will likely keep an eye on this.Hyperlipidemia- unspecified: Stop simvastatin and recheck after delivery.Diet and eercise. Plan developed in collaboration with patient and/or familyMedications:ONE A DAY 0.4-25 MG ORAL TABLET CHEWABLEFERROUS SULFATE 325 (65 FE) MG ORAL TABLETEQL VITAMIN D3 1000 UNIT ORAL CAPSULEMedication Changes:Added: ONE A DAY 0.4-25 MG ORAL TABLET CHEWABLERefilled:FERROUS SULFATE 325 (65 FE) MG ORAL TABLET-Take one tab po BID Qty: 60[Tablet] Refills: 5 Method: ElectronicEQL VITAMIN D3 1000 UNIT ORAL CAPSULE-Take one tab po QD Qty: 30[Capsule] Refills: 5 Method: ElectronicRemoved:SIMVASTATIN 20 MG ORAL TABLET-Take one tab po QD Qty: 30[Tablet] Refills: 5Allergies:* RAGWEED (Critical)* BEE STINGS (Critical)* SPIDERS (Critical)Orders:Adult - Ofc Vst, EST, Level III [CPT-26538] Medications:EQL VITAMIN D3 1000 UNIT ORAL CAPSULE (CHOLECALCIFEROL) Take one tab po QD #30[Capsule] x 5 Route:ORAL Entered and Authorized by: Gumaro Renee MD Method used: Electronically to [facility] (retail) [address] [place] [address] Note to Pharmacy: Route: ORAL; RxID: [id number] SULFATE 325 (65 FE) MG ORAL TABLET (FERROUS SULFATE) Take one tab po BID #60[Tablet] x 5 Route:ORAL Entered and Authorized by: Gumaro Renee MD Method used: Electronically to [facility] (retail) [address] [place] [address] Note to Pharmacy: Route: ORAL; RxID: [id number] SIMVASTATIN 20 MG ORAL TABLET (SIMVASTATIN) Take one tab po QD #30[Tablet] x 5 Route:ORAL Entered by: Gumaro Renee MD Authorized by: Mica GARVEY Method used: Electronically to [facility] (retail) [address] [place] [address] RxID: [id number] signed by Gumaro Renee MD on 09/24/2019 at 10:23 AM Name Value Range Interpretation Code Description Data Marissa rce(s) Supporting Document(s) ID Date Data Source [id number] 09/19/2019 09:56:47 AM EDT [facility] Labs In-House Blood TestsDate/Time Colle cted: September 19, 2019 9:45 AMTest Result Reference Range Normal ValueComments: blood draw done in office, taken from right ac, tolerated well.Shannon Harkins, September 19, 2019 9:57 AMAssessment & Plan Orders:66577-Hdd Vst-Est Level I [CPT-22357] 13920 - Venipuncture [CPT-50289] Name Value Range Interpretation Code Description Data Marissa rce(s) Supporting Document(s) ID Date Data Source [id number] 09/19/2019 09:45:00 AM EDT [facility] Name Value Range Interpretation Code Description Data Marissa rce(s) Supporting Document(s) BG FASTING 80 mg/dL 70-100 [facility] ID Date Data Source [id number] 09/19/2019 09:45:00 AM EDT [facility] Name Value Range Interpretation Code Description Data Marissa rce(s) Supporting Document(s) HCT 36.6 % 36.0-47.0 N [facility] HGB 11.0 g/dL 12.0-15.5 L [facility] MCH 30.1 G/DL pg 32.0-36.5 L [facility] MCHC 23.3 PG % 27.0-33.0 L [facility] PLATELETS 267 10 10*3/mm3 150-450 N [facility] RBC 4.72 10 10*6/mm3 4.00-5.40 N [facility] RDW 17.3 % 11.5-14.5 H [facility] WBC TOTAL 8.4 4.0-10.0 N [facility] ID Date Data Source [id number] 09/19/2019 09:45:00 AM EDT [facility] Name Value Range Interpretation Code Description Data Marissa rce(s) Supporting Document(s) HGBA1C 5.4 % N [facility] Procedure Social History Code Duration Value Status Description Data Source(s ) Smoking 04/25/2020 12:00:00 AM EST Never Smoker completed Never S moker eCW1 ([facility]) Smoking 04/18/2020 12:00:00 AM EST Never Smoker completed Never S moker eCW1 ([facility]) Smoking 03/28/2020 12:00:00 AM EST Never Smoker completed Never S moker eCW1 ([facility]) Smoking 02/29/2020 12:00:00 AM EST Never Smoker completed Never S moker eCW1 ([facility]) Smoking 01/29/2020 12:00:00 AM EST Never Smoker completed Never S moker eCW1 ([facility]) Smoking 01/29/2020 12:00:00 AM EST Never Smoker completed Never S moker eCW1 ([facility]) Smoking 01/29/2020 12:00:00 AM EST Never Smoker completed Never S moker eCW1 ([facility]) Smoking 01/29/2020 12:00:00 AM EST Never Smoker completed Never S moker eCW1 ([facility]) Smoking 01/01/2020 12:00:00 AM EDT Never Smoker completed Never S moker eCW1 ([facility]) Smoking 10/11/2019 12:00:00 AM EDT Never Smoker completed Never S moker eCW1 ([facility]) Smoking 10/02/2019 12:00:00 AM EDT Never Smoker completed Never S moker eCW1 ([facility]) Vital Signs ID Date Data Source UNK Name Value Range Interpretation Code Description Data Source(s) Diastolic blood pressure 70 mm[Hg] 70 mm[Hg] eCW1 ([facility]) Systolic blood pressure 104 mm[Hg] 104 mm[Hg] e CW1 ([facility]) Body mass index (BMI) [Ratio] 39.8 kg/m2 39.8 k g/m2 eCW1 ([facility]) Body height 62 [in_i] 62 [in_i] eCW1 ([facility]) Body weight 98.7 kg 98.7 kg eCW1 ([facility]) Body weight 217.6 [lb_av] 217.6 [lb_av] eCW1 ([facility]) Diastolic blood pressure 72 mm[Hg] 72 mm[Hg] eCW1 ([facility]) Systolic blood pressure 106 mm[Hg] 106 mm[Hg] e CW1 ([facility]) Body mass index (BMI) [Ratio] 39.982 kg/m2 39.9 82 kg/m2 eCW1 ([facility]) Body height 62 [in_i] 62 [in_i] eCW1 ([facility]) Body weight 218.6 [lb_av] 218.6 [lb_av] eCW1 ([facility]) Diastolic blood pressure 74 mm[Hg] 74 mm[Hg] eCW1 ([facility]) Systolic blood pressure 104 mm[Hg] 104 mm[Hg] e CW1 ([facility]) Body mass index (BMI) [Ratio] 40.239 kg/m2 40.2 39 kg/m2 W1 ([facility]) Body height 62 [in_i] 62 [in_i] eCW1 ([facility]) Body weight 220 [lb_av] 220 [lb_av] eCW1 ([facility]) Diastolic blood pressure 72 mm[Hg] 72 mm[Hg] eCW1 ([facility]) Systolic blood pressure 110 mm[Hg] 110 mm[Hg] e CW1 ([facility]) Body mass index (BMI) [Ratio] 39.69 kg/m2 39.69 kg/m2 W1 ([facility]) Body height [in_i] eCW1 ([facility]) Body weight 217 [lb_av] 217 [lb_av] eCW1 ([facility]) Diastolic blood pressure 76 mm[Hg] 76 mm[Hg] eCW1 ([facility]) Systolic blood pressure 120 mm[Hg] 120 mm[Hg] e CW1 ([facility]) Body mass index (BMI) [Ratio] 39.726 kg/m2 39.7 26 kg/m2 eCW1 ([facility]) Body height [in_i] eCW1 ([facility]) Body weight 217.2 [lb_av] 217.2 [lb_av] eCW1 ([facility]) Diastolic blood pressure 74 mm[Hg] 74 mm[Hg] eCW1 ([facility]) Systolic blood pressure 118 mm[Hg] 118 mm[Hg] e CW1 ([facility]) Body mass index (BMI) [Ratio] 39.69 kg/m2 39.69 kg/m2 eCW1 ([facility]) Body height [in_i] eCW1 ([facility]) Body weight 217.0 [lb_av] 217.0 [lb_av] eCW1 ([facility]) Diastolic blood pressure 74 mm[Hg] 74 mm[Hg] eCW1 ([facility]) Systolic blood pressure 118 mm[Hg] 118 mm[Hg] e CW1 ([facility]) Body mass index (BMI) [Ratio] 38.41 kg/m2 38.41 kg/m2 eCW1 ([facility]) Body height [in_i] eCW1 ([facility]) Body weight 210.0 [lb_av] 210.0 [lb_av] eCW1 ([facility]) Body mass index (BMI) [Ratio] 37.49 kg/m2 37.49 kg/m2 eCW1 ([facility]) Body height [in_us] eCW1 ([facility]) Body weight Measured 205 [lb_av] 205 [lb_av] eC W1 ([facility]) Patient Treatment Plan of Care Planned Activity Planned Date Details Description Data Source (s) POLYETHYLENE GLYCOL 3350 142 MG/ML Oral Solution [Snow lax] 02/20/2020 12:00:00 AM EST eCW1 ([facility]) ferrous sulfate 325 MG Delayed Release Oral Tablet 02/20/2020 12 :00:00 AM EST eCW1 ([facility])
--- OUTSIDE RECORDS SUMMARY | 2020-05-02 10:54 | CCD ---
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 Name Role Phone Domingo Zuniga Unavailable PROBLEMS Type Condition ICD9-CM Code [id number] Code Onset Dates Condition S tatus SNOMED Code Notes Problem Obesity E66.9 Active 013132749 Problem Obesity complicating in second trimester O99.212 Active 768489828926 Problem Obesity complicating in first trimester O99.211 Active 695037697366 Problem Body mass index (BMI) 38.0-38.9, adult Z68.38 A ctive 045440327 Problem Other obesity due to excess calories E66.09 Act fantasma 764164691 Problem Obesity (BMI 35.0-39.9 without comorbidity) E66.01 Active 652154186 ALLERGIES Allergen (clinical drug ingredient) Drug/Non Drug Allergy do cumented on EMR Reaction Allergy Type Onset Date Status ragweed Rash Non Drug Allergy Active spiders Hives Non Drug Allergy Active Bee sting Hives Non Drug Allergy Active ENCOUNTERS from 1989 to 2020-02-04 Encounter Location Date Provider Diagnosis [address] [address] Jan, Domingo Zuniga IMMUNIZATIONS Vaccine Route Administration Date Status Influenza (6mo & up) Fluzone IM Intramuscular Jan 02, 2020 Ad ministered SOCIAL HISTORY Tobacco Use: Social History Observation Description Date Details (start date - stop date) Never Smoker Sex Assigned At : Social History Observation Description Sex Assigned At Unknown Language: Question Answer Notes Languages spoken: Welsh Sexual Hx: Question Answer Notes Had sex [...] UT) 1 tab orally Daily Active PROCEDURES No Information RESULTS No Results REASON FOR VISIT constipation MEDICAL (GENERAL) HISTORY Type Description Date Medical History Hypoglycemia Medical History Anemia, unspecified type Medical History Other hyperlipidemia Surgical History No know Surgical history Hospitalization History childbirth Goals Section No Information Health Concerns No Information MEDICAL EQUIPMENT No Information MENTAL STATUS No Information FUNCTIONAL STATUS No Information ASSESSMENTS No Information PLAN OF TREATMENT Next Appt Details Provider Name:Luann Tinajero, 2020-02 03:00:00 PM, [address] [place], [address], Insurance Providers Payer Name Payer Address Payer Phone Insured Name Patient Relati onship to Insured Coverage Start Date Coverage End Date [facility] [address] [facility] [phone] LAKEISHA BARRERA self MEDICAID [employer] [address] [facility] [address] LAKEISHA ROWLAND self
--- OUTSIDE RECORDS SUMMARY | 2020-05-02 10:54 | CCD ---
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 Name Role Phone Luann Tinajero Unavailable PROBLEMS Type Condition ICD9-CM Code [id number] Code Onset Dates Condition S tatus SNOMED Code Notes Problem Obesity E66.9 Active 263063802 Problem Obesity complicating in second trimester O99.212 Active 125273503170 Problem Obesity complicating in first trimester O99.211 Active 892550528436 Problem Body mass index (BMI) 38.0-38.9, adult Z68.38 A ctive 488631029 Problem Other obesity due to excess calories E66.09 Act fantasma 574129846 Problem Obesity (BMI 35.0-39.9 without comorbidity) E66.01 Active 207106464 ALLERGIES Allergen (clinical drug ingredient) Drug/Non Drug Allergy do cumented on EMR Reaction Allergy Type Onset Date Status ragweed Rash Non Drug Allergy Active spiders Hives Non Drug Allergy Active Bee sting Hives Non Drug Allergy Active ENCOUNTERS from 1989 to 2020-02-19 Encounter Location Date Provider Diagnosis [facility] [address] [place] [address] Jan, Luann Tinajero 25 weeks gestation o f Z3A.25 ; Other obesity due to excess calories E66.09 and Obesity complicating in second trimester O99.212 IMMUNIZATIONS Vaccine Route Administration Date Status Influenza (6mo & up) Fluzone IM Intramuscular Jan 02, 2020 Ad ministered SOCIAL HISTORY Tobacco Use: Social History Observation Description Date Details (start date - stop date) Never Smoker Sex Assigned At : Social History Observation Description Sex Assigned At Unknown Language: Question Answer Notes Languages spoken: Frisian Sexual Hx: Question Answer Notes Had sex in the last 12 months (vaginal, oral, or anal)? Yes LMP: 04/21/2019 Have you ever had an STD? No Use protection? No BMI Care Goal Follow-Up Question Answer Notes Above Normal BMI Follow-Up Weight monitoring Tobacco Use: Question Answer Notes Are you a: never smoker REASON FOR REFERRAL No Information VITAL SIGNS Weight 217.2 lbs Jan, Height 62" in Jan, BMI 39.726 kg/m2 Jan, Blood pressure systolic 120 mm Hg Jan, Blood pressure diastolic 76 mm Hg Jan, MEDICATIONS Medication SIG (Take, Route, Frequency, Duration) [...] Notes Treatment Notes Treatm ent Clinical Notes Jan, 25 weeks gestation of (ICD-10 - Z3A.25 ) Jan, Other obesity due to excess calories (ICD-10 - E 66.09) Jan, Obesity complicating pregnan cy in second trimester (ICD-10 - O99.212) PLAN OF TREATMENT Next Appt Details 4 Weeks Reason:PN Provider Name:Luann Tinajero, 2020-02 03:00:00 PM, [address] [place], [address], Follow Up:4 WeeksPN Insurance Providers Payer Name Payer Address Payer Phone Insured Name Patient Relati onship to Insured Coverage Start Date Coverage End Date [facility] [employer] [address] [facility] [address] LAKEISHA BARRERA [facility] MEDICAID [employer] [address] [place] [id number] LAKEISHA ROWLAND self
[2020-05-02] MEDS ORDERED: LACTATED RINGER'S 1000 ML IV STA (11:01)
--- NOTE | 2020-05-02 11:41 | HPEPDOC ---
Obstetrical History & Physical General Date of Admission May 02, 2020 at 10:49 History of Present Illness Chief Complaint: Induction of labor Information Provided By: Patient Age: 29 : 6 Term: 4 Pre-term: 0 Abortions: 1 Livin Care Care: Good Care Dating Final EDC: May 08, 2020 Final EDC by: LMP EGA at Admission: 39 (+1) Antepartum Course Pre- weight (lbs.): 210 Admission Weight (lbs.): 217 Past Medical History Past Obstetrical History #1: Past Obstetrical History: Primgravida (2009) Type of Delivery: Spontaneous Vaginal Del. Sex of Infant: Female (8#6) Complications: No Past Obstetrical History #2: Past Obstetrical History: Multigravida (2010) Type of Delivery: Spontaneous Vaginal Del. Sex of Infant: Male (7#6) Complications: No Past Obstetrical History #3: Past Obstetrical History: Multigravida (2014) Type of Delivery: Spontaneous Vaginal Del. Sex of : Male (8#12) Complications: No Past Obstetrical History #4: Past Obstetrical History: Multigravida (2016) Type of Delivery: Spontaneous Vaginal Del. Sex of : Male (8#12) Complications: Yes (decreased FH) PHYSICAL MEDICINE PHYSICIAN History: Spontaneous (2012) Past Medical History Medical History hypoglycemia, anemia, hyperlipidemia Surgical History: Denies/None Family History Significant Family History: Asthma, Cancer, Diabetes, Heart disease Social History Family situation: Spouse/partner home * Smoker: non-smoker Alcohol: Denies Drugs: denies Imunizations Tdap status: needs Influenza Status: current Allergies Coded Allergies: bee venom protein (honey bee) (Verified Allergy, Unknown, 09/18/18) ragweed pollen (Verified Allergy, Unknown, 09/18/18) Medications Scheduled Olopatadine HCl (Patanol) 0.1% 5ML Drops, 1 DROP OU BID cefUROXime axetil (Cefuroxime) 500 Mg Tablet, 1 TAB PO BID Physical Examination Physical Examination GENERAL: Alert and oriented times three. BREAST: . ABDOMEN: Gravid and non-tender to touch. FETUS: Is vertex (VTX) by sterile vaginal examination (SVE), fetus is vertex (VTX) by Maximiliano. Efw 9-9.5 # HEART RATE: Regular rate and rhythm. LUNGS: Clear to auscultation (CTA). EXTREMITIES: No edema. No clonus. Deep tendon reflexes (DTRs) + 2. Laboratory Data [facility] Laboratory Tests 2 05/02/20 11:02: Serology Scanned Report Hepatitis B Testing Pertinent Laboratoy Data Blood Type: O- RBC Antibody Screen: Negative HIV: Negative Hepatitis B: Negative Hepatitis C: Negative Rapid Plasma Reagin: Nonreactive Rubella: Immune Chlamydia/Gonorrhea: Negative Group B Streptococcus: Positive Glucose Tolerance Test: 99 (repeat 85) Anatomy Ultrasound Placenta Location: Posterior Normal Anatomy: Yes Placenta Previa: No Other Ultrasounds 10/11/19 dating 10w1d 03/07/2020 OBED 15.0, EFW >97% 04/11/20 Cephalic EFW 3372gm >97% Steroid Therapy Steroid Therapy: No Vaginal Examination Dilation: 1cm (-2) Effacement: 50% Station: -3 Cervical Consistency: Medium Cervical Position: Posterior Presentation: Cephalic presentation Assessment Heart Rate (FHR): 135 Variability: Moderate Accelerations: Positive Decelerations: None Tocometer Frequency: irregular (uterine irritability) Strength: palpated as mild Assessment/Plan Assessment Kaylin is a 29-year-old (G)6 para (P)4-0-1-4 at 39+1 weeks by 10-week ultrasound. Presents to Labor and Delivery (L&D) elective induction of labor due to suspected macrosomia. Reports irregular mild UC. Denies LOF, bleeding. Fetus is active. Plan Admit and orient. Muffle Worker and consent per consult Dr Guerrero Diet: regular. Group B Streptococcus (GBS) positive - treat in labor. Labs and intravenous (IV) per unit protocol. Counseled on misoprostol, Pitocin and induction of labor (IOL). Lactated Ringers (LR): Bolus 500 mL, then saline lock. Plans epidural Anticipate normal spontaneous delivery () C-S as appropriate. Leatha Gautheir CNM May 02, 2020 11:41
[2020-05-02 16:10] LABS: HEMATOCRIT 33.1 % (36.0-47.0); HEMOGLOBIN 9.5 g/dl (12.0-15.5); MEAN CORPUSCULAR HEMOGLOBIN 22.1 pg (27.0-33.0); MEAN CORPUSCULAR HGB CONC 28.7 g/dl (32.0-36.5); MEAN CORPUSCULAR VOLUME 77.2 fl (80.0-96.0); PLATELET COUNT, AUTOMATED 155 10^3/uL (150-450); RED BLOOD COUNT 4.29 10^6/uL (4.00-5.40); WHITE BLOOD COUNT 13.1 10^3/uL (4.0-10.0)
[2020-05-02] MEDS ORDERED: PENICILLIN G POTASSIUM IV 5 MU in D5W MINI-BAG PLUS 100 ML IV STA (18:23)
--- NOTE | 2020-05-02 18:32 | IPNPDOC ---
Text Note Date of Service The patient was seen on 05/02/20. NOTE Progress Has been in the tub for comfort. SROM clear fluid 1715. UC 2-3 minutes x 45-60 seconds FH 145, Cat I SVE 5/80/-3, clear fluid draining PV Start GBS prophylaxis. Desires epidural VS,Fishbone, I+O VS, Fishbone, I+O Laboratory Tests 05/02/20 15:54 Leatha Gauthier CNM May 02, 2020 18:32
[2020-05-02] MEDS ORDERED: FENTANYL 2MCG/ML ROPIVACAINE 0.2% IN 0.9% NACL 100ML IVBAG As Ordered ONE (18:42)
[2020-05-02] MEDS ORDERED: LACTATED RINGER'S 1000 ML IV PRN (19:00)
[2020-05-02] MEDS ORDERED: ONDANSETRON 4MG/2ML VIAL IV PRN (19:00)
[2020-05-02] MEDS ORDERED: EPIDURAL/PCA KEYS XX PRN (19:00)
[2020-05-02] MEDS ORDERED: REFRIGERATOR IV KEYS XX PRN (19:00)
[2020-05-02] MEDS ORDERED: FENTANYL/ROPIVACAINE/NACL BAG 100 ML EPIDURAL SCH (19:00)
[2020-05-02] MEDS ORDERED: diphenhydrAMINE 50MG/ML VIAL (J1200) IV PRN (19:00)
[2020-05-02] MEDS ORDERED: ePHEDrine SULFATE 25 MG/5 ML(5MG/ML) SYRINGE IV PRN (19:00)
[2020-05-02] MEDS ORDERED: NALOXONE INJ 0.4MG/1ML VIAL (J2310 PER 1MG) IV PRN (19:00)
[2020-05-02] MEDS ORDERED: EPIDURAL COMMENT XX SCH (19:00)
[2020-05-02] MEDS ORDERED: CALC500C15 PO (19:27)
[2020-05-02] MEDS ORDERED: PNV1TAB6 PO (19:27)
[2020-05-02] MEDS ORDERED: MAPA500T2 PO (19:27)
[2020-05-02] MEDS ORDERED: OXYTOCIN 30 UNITS IN 0.9% NaCl 500ML IV BAG (J2590) As Ordered ONE (20:00)
[2020-05-02] MEDS ORDERED: OXYTOCIN DRIP 30 UNITS in IV 1 EA IV SCH (22:03)
[2020-05-02] MEDS ORDERED: DOCUSATE SODIUM 100MG CAPSULE PO PRN (22:15)
[2020-05-02] MEDS ORDERED: IBUPROFEN 800 MG TAB PO PRN (22:15)
[2020-05-02] MEDS ORDERED: RHOGAM 300 MCG (1500 IU) INJ (J2790) IM SCH (22:15)
[2020-05-02] MEDS ORDERED: ACETAMINOPHEN 500 MG TAB PO PRN (22:15)
[2020-05-02] MEDS ORDERED: MEASLES,MUMPS,RUBELLA VACCINE INJ (MMR-II) (90707) SC SCH (22:15)
[2020-05-02] MEDS ORDERED: ACETAMINOPHEN TAB 650MG DOSE (2X325MG) PO PRN (22:15)
[2020-05-02] MEDS ORDERED: MOM 30ML SUSPENSION UDC PO PRN (22:15)
[2020-05-02] MEDS ORDERED: ANUSOL HC CREAM 30GM TOP PRN (22:15)
[2020-05-02] MEDS ORDERED: IBUPROFEN 600MG TAB PO PRN (22:15)
[2020-05-02] MEDS ORDERED: BENZOCAINE 20% HEMORRHOIDAL OINTMENT 28GM TUBE TOP PRN (22:15)
[2020-05-02 22:16] LABS: CORD GAS HCO3 V 16.1 MEQ/L; CORD GAS O2 SAT V 59.1 %; CORD GAS PCO2 V 36.6 mmHg; CORD GAS PH V 7.261 UNITS; CORD GAS SBC V 15.8 MEQ/L; CORD GAS TCO2 V 17.2 MEQ/L
--- NOTE | 2020-05-02 22:17 | DNPDOC ---
[facility] Delivery Note Delivery Note DATE OF DELIVERY: 05/02/2020 PREDELIVERY DIAGNOSIS: 39-03/27 weeks' gestation and labor. POST DELIVERY DIAGNOSIS: Delivered. PROCEDURE: Spontaneous vaginal delivery. PROVIDER: Leatha Gauthier CNM ANESTHESIA: Epidural. ESTIMATED BLOOD LOSS: 300 mL. FINDINGS: 7 pound 12 ounc, 3520gm male infant, Score 6/8, nuchal cord times 1, loose. DELIVERY SUMMARY: Patient is a 29 year-old 6 now para 5 who was admitted to labor and delivery for elective induction of labor for suspected macrosomia. She received one oral misoprostol and labor did progress. An epidural was utilized for labor coping. SROM thin meconium stained fluid 1644. Fully dilated 2038. Viable male child delivered ROT, restituted to direct OP without difficulty @ 2141. Heavy meconium noted at delivery. Poor respiratory effort noted. Cord doubly clamped and cut, to warmer for suctioning and stimulation. Cord gases obtained and pending. Apgars 6/8. Placenta peoples, with large amount of trailing membranes @ 2150. Entire sac noted to have sheared off placental disc. Fundus firmed with massage and IV pitocin bolus. EBL 300ml. Cervix, vagina and perineum intact. Sponge, sharp and instrument count correct. Parents are naming their son Jorge. Leatha Gauthier CNM May 02, 2020 22:14
[2020-05-02 22:19] LABS: CORD GAS ABE A -10.9; CORD GAS HCO3 A 20.7 MEQ/L; CORD GAS O2 SAT A 49.1 %; CORD GAS PCO2 A 69.5 mmHg; CORD GAS PH A 7.091 UNITS; CORD GAS PO2 A 28.1 mmHg; CORD GAS SBC A 15.1 MEQ/L; CORD GAS TCO2 A 22.8 MEQ/L
[2020-05-02] MEDS: METHYLERGONOVINE MALEATE 0.2 MG TAB PO SCH (22:25)
[2020-05-02] MEDS ORDERED: PENICILLIN G POTASSIUM IV 2.5 MU in IV 1 EA IV SCH (22:33)
[2020-05-03] MEDS: PERCOCET 5MG/325MG TAB PO PRN ×3 (00:41→19:41)
[2020-05-03] MEDS: METHYLERGONOVINE MALEATE 0.2 MG TAB PO SCH ×3 (04:26→16:02)
[2020-05-03 06:00] VITALS: BP 107/53
--- NOTE | 2020-05-03 07:17 | IPNPDOC ---
Text Note Date of Service The patient was seen on 05/03/20. NOTE PP #1 Reports hip pain continues to be worse than post delivery pain. Using Kpad. Voiding QS VSS, afebrile,normotensive. Fundus firm, NT, down 1 FB Lochia rubra light without odor Perineum intact PP #1, chronic hip pain Routine care. Enc OOB activity today Consider discharge in am VS,Fishbone, I+O VS, Fishbone, I+O Laboratory Tests 05/02/20 15:54 Vital Signs Date Time Temp Pulse Resp B/P (MAP) Pulse Ox O2 Delivery O2 Flow Rate FiO2 05/03/20 06:00 98.0 70 18 107/53 (71) 97 Room Air I&O- Last 24 Hours up to 6 AM 05/03/20 06:00 Intake Total 3063 ml Output Total 800 ml Balance 2263 ml Leatha Gauthier CNM May 03, 2020 07:17
[2020-05-03] MEDS ORDERED: BOOSTRIX/ADACEL VACCINE (DIPHTH/PERTUSS/ACELL/TETANUS) 0.5ML SYR IM ONE (10:00)
[2020-05-03] MEDS: PRENATAL VITAMINS CHEWABLE TABLET PO SCH (10:25)
[2020-05-03] MEDS: IBUPROFEN 800 MG TAB PO SCH ×2 (12:06→17:49)
[2020-05-03 18:00] VITALS: BP 108/57
[2020-05-03] MEDS ORDERED: METHYLERGONOVINE MALEATE 0.2 MG TAB PO PRN (22:15)
[2020-05-04] MEDS: IBUPROFEN 800 MG TAB PO SCH ×2 (00:10→06:01)
[2020-05-04 06:00] VITALS: BP 100/52
[2020-05-04] MEDS: PRENATAL VITAMINS CHEWABLE TABLET PO SCH (09:00)
--- NOTE | 2020-05-04 10:54 | IPNPDOC ---
Progress Note Date of Service: May 04, 2020 Progress Note SUBJECT: Status post . She has been ambulating, voiding spontaneously without issue and tolerating regular diet. Lochia decreasing/minimal. Pain is well-controlled. Denies headache, visual changes, right upper quadrant pain, shortness breath or chest pain. OBJECTIVE: VITAL SIGNS: Within normal limits, afebrile. Alert and oriented times three. Abdomen: Fundus firm at U-2. Soft, NTTP. ASSESSMENT: Status post uncomplicated spontaneous vaginal delivery. Vitals within normal limits, afebrile, hemodynamically stable with no evidence of infection. PLAN: Discharge to home today. Tylenol and Motrin for pain. Routine instructions/precautions reviewed. Routine PP visit in 6 weeks in clinic. VS, I&O, 24H, Fishbone Vital Signs/I&O Vital Signs Date Time Temp Pulse Resp B/P (MAP) Pulse Ox O2 Delivery O2 Flow Rate FiO2 05/04/20 06:00 97.8 76 18 100/52 (68) 97 Room Air KERRI RHODES DO May 04, 2020 10:54
== END 2020-05-04 11:40 | disposition home or self-care (01) | DRG 560 ==
LOC: M LDI 10:49 → M OBS 23:49
PROVIDERS: ADMIT Advanced Practice Midwife; ATTEND Advanced Practice Midwife
PROC: 10E0XZZ Delivery of Products of Conception, External Approach (ICD-10-PCS; principal; 2020-05-02)
PROC: 3E0DXGC Introduction of Other Therapeutic Substance into Mouth and Pharynx, External Approach (ICD-10-PCS; 2020-05-02)
DX: O99.824 Streptococcus B carrier state complicating childbirth (principal); O69.81X0 Labor and delivery complicated by cord around neck, without compression, not applicable or unspecified; Z37.0 Single live birth; Z3A.39 39 weeks gestation of pregnancy; Z91.030 Bee allergy status

== ENCOUNTER → 2021-01-12 | Outpatient (CLI) | payer OTHER ==
[~2021-01-12] MED LIST changes: +CALC500C15 PO; +PNV1TAB6 PO; -miSOPROStol 50MCG 1/2 TABLET PO SCH
== END ==
LOC: M LABSMTC 09:26
PROVIDERS: ATTEND Anesthesiology
DX: Z01.812 Encounter for preprocedural laboratory examination (principal); Z20.822 Contact with and (suspected) exposure to COVID-19

== ENCOUNTER 2021-01-16 06:00 | Day surgery (SDC) | payer OTHER ==
[~2021-01-16] VITALS: Ht 157.5 cm; Wt 98.4 kg
[~2021-01-16 06:00] MED LIST changes: +CelecoXIB 400 MG CAP PO ONE; +LR 1,000 ML IV ONE; +ceFAZolin SOD 2 GM in IV 1 EA IV ONE
[2021-01-16] MEDS ORDERED: LIDOCAINE 1% SDV 30ML VIAL As Ordered ONE (07:05)
[2021-01-16] MEDS ORDERED: BUPIVACAINE HCL 0.25% 30ML VIAL As Ordered ONE (07:06)
[2021-01-16] MEDS ORDERED: MIDAZOLAM INJ 2MG/2ML VIAL (J2250 PER 1MG) As Ordered ONE (07:08)
[2021-01-16] MEDS ORDERED: SUGAMMADEX SODIUM 500 MG/5 ML VIAL (BRIDION) As Ordered ONE (07:08)
[2021-01-16] MEDS ORDERED: fentaNYL 250 MCG/5 ML INJECTION (J3010) As Ordered ONE (07:08)
[2021-01-16] MEDS ORDERED: dexameTHASONE 4 MG/ML 1ML VIAL (J1100 PER 1MG) As Ordered ONE (07:08)
[2021-01-16] MEDS ORDERED: ONDANSETRON 4MG/2ML VIAL As Ordered ONE (07:08)
[2021-01-16] MEDS ORDERED: propofoL 200 MG/20 ML VIAL As Ordered ONE (07:09)
[2021-01-16] MEDS ORDERED: LIDOCAINE 2% 100MG/5ML SDV (FOR ANES.) As Ordered ONE (07:09)
[2021-01-16] MEDS ORDERED: ROCURONIUM BROMIDE 50 MG/5 ML VIAL As Ordered ONE (07:09)
[2021-01-16] MEDS ORDERED: PHENYLephrine 500MCG 5ML (100MCG/ML) SYRINGE As Ordered ONE (07:13)
[2021-01-16] MEDS ORDERED: ePHEDrine SULFATE 25 MG/5 ML(5MG/ML) SYRINGE As Ordered ONE (07:13)
[2021-01-16] MEDS ORDERED: ACETAMINOPHEN 1000MG 100ML IV BTL (OFIRMEV) (J0131 PER 10MG) As Ordered ONE (07:54)
[2021-01-16] MEDS ORDERED: KETOROLAC 30 MG/ML 1ML VIAL IV PRN (09:40)
[2021-01-16] MEDS ORDERED: oxyCODONE 5MG TAB PO PRN (09:40)
[2021-01-16] MEDS ORDERED: LR 1,000 ML IV SCH (09:40)
[2021-01-16] MEDS ORDERED: NORCO, ANEXSIA 5/325MG TABLET (HYDROcodone/ACETAMINOPHEN) PO PRN (09:40)
[2021-01-16] MEDS ORDERED: fentaNYL 100 MCG/2 ML INJECTION (J3010) IV PRN (09:40)
[2021-01-16] MEDS ORDERED: ONDANSETRON 4MG/2ML VIAL IV PRN ×2 (09:40→14:30)
--- NOTE | 2021-01-16 09:44 | ROOPDOC ---
[facility] Report Of Operation Report of Operation DATE OF PROCEDURE: 01/16/21 PREPROCEDURE DIAGNOSES: Umbilical hernia, incarcerated. POSTPROCEDURE DIAGNOSES: Umbilical hernia, incarcerated omentum. PROCEDURE PERFORMED: Open preperitoneal umbilical hernia repair with ventral patch mesh, closure of defect. SURGEON: Alejandro Benson MD ANESTHESIA: General endotracheal anesthesia. ESTIMATED BLOOD LOSS: Approximately 10 mL. COMPLICATIONS: None. REMARKS: 30-year-old female, multi parous with gradually enlarging, nonreducible umbilical hernia. FINDINGS: Patient has a very lax, thin fascia surrounding the umbilical defect. Umbilical defect measures 2.5 transversely 2 cm vertically. A primary fascial defect and smaller subcentimeter defect also noted. This was containing omentum, small amount of serous fluid., Well-formed hernia sac. SPECIMENS REMOVED: Omentum and hernia sac. DESCRIPTION OF PROCEDURE: Patient received 2 g of Ancef IV preoperatively for wound prophylaxis. He was brought to the operating room, placed supine on the procedure table. Bilateral sequential compression devices placed on both lower extremities for DVT prophylaxis. General endotracheal anesthesia established. His abdomen then prepped and draped in the usual sterile fashion. We paused for a surgical timeout using both pre-incision safety checklist to verify correct patient, procedure site and additional clinical information prior to beginning the procedure Patient has a soft tissue protrusion in the bottom of her umbilical cleft taking over the hole of the umbilicus and pushing and outward. Normal overlying skin. The herniating component is not reducible even with her under general anesthesia. Roughly about 3 x 3 cm protrusion outward. Wide diastases and very thin, lax abdominal wall from multiple pregnancies. I infiltrated the bottom of the umbilical cleft with a mixture of 1% lidocaine and 1/4% Marcaine. A curvilinear incision was then created at the bottom of the umbilical cleft and slowly deepened through the superficial subcutaneous tissue. The umbilical skin cleft was dissected off the hernia sac and we circumferentially dissected around the hernia sac down to the fascia. Initially I tried to reduce the content back into the abdomen but due to the amount and bulkiness of what was coming out this was not feasible. The hernia sac was opened up and this was containing omentum as well as a tiny amount of serous fluid. Again I tried to reduce the omentum and the hernia sac opened but still is quite bulky so I trimmed the protruding omentum in between hemostats and tied this off with 2-0 Vicryl and then push it down to the abdominal cavity. The hernia sac was then trimmed to the level of the abdominal wall. I circumferentially freed up the subcutaneous tissue around the fascial defect and encountered another smaller defect on top less than a centimeter in size containing preperitoneal tissue. This was incorporated to the primary fascia. I then dissected the peritoneum off the abdominal wall on both sides and circumferentially dissected this to create a preperitoneal pocket. This was closed with a running suture of 2-0 Vicryl. I then bluntly dissected further to preperitoneal pocket with a 4 x 4 gauze to create enough space to accommodate the ventral patch mesh which is 6.4 cm in size. The defect itself roughly is about 2.5 centimeters transversely but the fascia itself is quite thin and lax. I obtained the ventral patch mesh moistened this in saline and inserted this into the preperitoneal pocket. This was secured to the anterior fascia using the flaps or wings to pull this up with 0 Vicryl. The flaps were trimmed to the level of the abdominal wall. The fascial opening was then closed with 0 Ethibond in a mattress fashion almost in a pants over vest configuration. The excess tissue and sac was there on trimmed. The subcutaneous tissue was reapproximated to prevent seroma formation. Umbilical plasty done to recreate the umbilical cleft by tacking the bottom of the umbilical skin to the fascia and soft tissue underneath. The incision was then closed in layers with 3-0 Vicryl at the superficial subcutaneous tissue and dermis placed interruptedly and 4-0 Monocryl to close the skin in a running subcuticular fashion. Steri-Strips a balled up gauze dressing and Tegaderm then used to cover the incision. Patient tolerated procedure well. Was promptly awakened extubated and brought to recovery room in stable condition. Counts of sponges and instruments verified correct. ALEJANDRO BENSON MD Jan 16, 2021 09:44
[2021-01-16] MEDS ORDERED: METOCLOPRAMIDE INJ 10MG/2ML VIAL (J2765 PER 1) IV PRN (10:30)
[2021-01-16 14:40] VITALS: BP 128/63
== END 2021-01-16 14:45 | disposition home or self-care (01) ==
LOC: M SDC 06:00
PROVIDERS: ATTEND Surgery
DX: K42.0 Umbilical hernia with obstruction, without gangrene (principal); Z91.030 Bee allergy status; D64.9 Anemia, unspecified; F41.9 Anxiety disorder, unspecified; Z87.891 Personal history of nicotine dependence
CPT/HCPCS: 49587; 81025; 88302; C1781; J0131; J0690; J1100; J2250; J2370; J2405; J2765; J3010

== ENCOUNTER 2021-06-09 20:56 | Emergency (ER) | payer OTHER ==
[~2021-06-09] VITALS: Ht 157.5 cm; Wt 94.1 kg
[2021-06-09 20:56] VITALS: BP 120/80
[~2021-06-09 20:56] MED LIST changes: -CelecoXIB 400 MG CAP PO ONE; -LR 1,000 ML IV ONE; -ceFAZolin SOD 2 GM in IV 1 EA IV ONE
[2021-06-09] MEDS ORDERED: KETOROLAC 60MG 2ML VIAL IM ONE (23:30)
[2021-06-09] MEDS ORDERED: AMOX875T2 PO (23:47)
== END 2021-06-09 23:51 | disposition home or self-care (01) ==
LOC: M ED 20:56
DX: S02.5XXA Fracture of tooth (traumatic), initial encounter for closed fracture (principal); X58.XXXA Exposure to other specified factors, initial encounter; Y92.9 Unspecified place or not applicable; Y93.89 Activity, other specified; Y99.9 Unspecified external cause status; F17.290 Nicotine dependence, other tobacco product, uncomplicated; Z91.030 Bee allergy status; J30.1 Allergic rhinitis due to pollen
CPT/HCPCS: 96372; 99282; J1885

== ENCOUNTER 2021-11-25 09:01 | Emergency (ER) | payer OTHER ==
[~2021-11-25] VITALS: Ht 160 cm; Wt 91.2 kg
[~2021-11-25 09:01] MED LIST changes: +AMOX875T2 PO
[2021-11-25 09:02] VITALS: BP 129/76
[2021-11-25] MEDS ORDERED: KETO0.5S15 (09:08)
[2021-11-25] MEDS ORDERED: SODI10SO14 (09:08)
== END 2021-11-25 11:00 | disposition left against medical advice (07) ==
LOC: M ED 10:43
DX: Z53.21 Procedure and treatment not carried out due to patient leaving prior to being seen by health care provider (principal)

== ENCOUNTER 2022-01-11 03:27 | Emergency (ER) | payer OTHER ==
[~2022-01-11] VITALS: Ht 157.5 cm; Wt 95.5 kg
[~2022-01-11 03:27] MED LIST changes: +KETO0.5S15; +SODI10SO14
[2022-01-11 03:28] VITALS: BP 129/74
== END 2022-01-11 04:38 | disposition left against medical advice (07) ==
LOC: M ED 03:27
DX: Z53.21 Procedure and treatment not carried out due to patient leaving prior to being seen by health care provider (principal)

== ENCOUNTER → 2022-02-02 | Outpatient (CLI) | payer OTHER ==
[2022-02-02 14:53] LABS: HEMATOCRIT 36.2 % (36.0-47.0); HEMOGLOBIN 10.3 g/dl (12.0-15.5); MEAN CORPUSCULAR HEMOGLOBIN 21.3 pg (27.0-33.0); MEAN CORPUSCULAR HGB CONC 28.5 g/dl (32.0-36.5); MEAN CORPUSCULAR VOLUME 74.8 fl (80.0-96.0); PLATELET COUNT, AUTOMATED 325 10^3/uL (150-450); RED BLOOD COUNT 4.84 10^6/uL (4.00-5.40); WHITE BLOOD COUNT 7.9 10^3/uL (4.0-10.0)
[2022-02-02 17:23] LABS: FERRITIN 2.99999 NG/ML (7.3-270.7)
== END ==
LOC: M PLALAB 09:59
PROVIDERS: ATTEND Internal Medicine Hematology
DX: D50.0 Iron deficiency anemia secondary to blood loss (chronic) (principal)

== ENCOUNTER 2022-02-08 13:05 | Outpatient (CLI) | payer OTHER ==
[~2022-02-08] VITALS: Ht 157.5 cm; Wt 92.1 kg
[2022-02-08 13:05] VITALS: BP 118/65
[~2022-02-08 13:05] MED LIST changes: +ALBUTEROL SULFATE 2.5 MG/0.5 ML INH NEB SOLN INH PRN; +EPINEPHrine INJ 1 MG/ML 1ML AMP IM PRN; +diphenhydrAMINE 50MG/ML VIAL IV PRN; +methylPREDNISolone 125MG 2ML VIAL IV PRN
[2022-02-08] MEDS ORDERED: NS 1,000 ML IV SCH (13:30)
[2022-02-08] MEDS ORDERED: FERRIC CARBOXYMALTOSE INJ 750 MG in NS 250 ML (>50kg) IV ONE ×3 (13:30)
[2022-02-08 15:00] VITALS: BP 123/65
== END 2022-02-08 15:00 | disposition home or self-care (01) ==
LOC: M INFU 13:05
PROVIDERS: ATTEND Internal Medicine Hematology
DX: D50.9 Iron deficiency anemia, unspecified (principal)
CPT/HCPCS: 96365; 96366; J1439

== ENCOUNTER 2022-02-15 14:15 | Outpatient (CLI) | payer OTHER ==
[~2022-02-15] VITALS: Ht 157.5 cm; Wt 93.0 kg
[2022-02-15 14:15] VITALS: BP 115/56
[~2022-02-15 14:15] MED LIST changes: -ALBUTEROL SULFATE 2.5 MG/0.5 ML INH NEB SOLN INH PRN; -EPINEPHrine INJ 1 MG/ML 1ML AMP IM PRN; -diphenhydrAMINE 50MG/ML VIAL IV PRN; -methylPREDNISolone 125MG 2ML VIAL IV PRN
[2022-02-15] MEDS ORDERED: ALBUTEROL SULFATE 2.5 MG/0.5 ML INH NEB SOLN INH PRN (14:30)
[2022-02-15] MEDS ORDERED: FERRIC CARBOXYMALTOSE INJ 750 MG in NS 250 ML (>50kg) IV ONE ×3 (14:30)
[2022-02-15] MEDS ORDERED: EPINEPHrine INJ 1 MG/ML 1ML AMP IM PRN (14:30)
[2022-02-15] MEDS ORDERED: methylPREDNISolone 125MG 2ML VIAL IV PRN (14:30)
[2022-02-15] MEDS ORDERED: diphenhydrAMINE 50MG/ML VIAL IV PRN (14:30)
[2022-02-15] MEDS ORDERED: NS 1,000 ML IV SCH (14:30)
[2022-02-15 16:15] VITALS: BP 108/58
== END 2022-02-15 16:15 ==
LOC: M INFU 14:15
PROVIDERS: ATTEND Internal Medicine Hematology
DX: D50.9 Iron deficiency anemia, unspecified (principal)
CPT/HCPCS: 96365; 96366; J1439

== ENCOUNTER → 2022-04-20 | Outpatient (REF) | payer OTHER | LOC: M LAB REF 22:13 | PROVIDERS: ATTEND Physician Assistant | DX: A08.4 Viral intestinal infection, unspecified (principal) ==

== ENCOUNTER → 2022-05-14 | Outpatient (REF) | payer OTHER ==
[2022-05-14 12:38] LABS: ALBUMIN 4.2 G/DL (3.2-5.2); ALKALINE PHOSPHATASE 71 U/L (46-116); ALT/SGPT 21 U/L (7.0-40); AST/SGOT 16 U/L (<34); BILIRUBIN,TOTAL 0.7 MG/DL (0.3-1.2); BLOOD UREA NITROGEN 13 MG/DL (9-23); CALCIUM LEVEL 8.7 MG/DL (8.5-10.1); CARBON DIOXIDE LEVEL 28 MMOL/L (20-31); CHLORIDE LEVEL 109 MMOL/L (98-107); CHOLESTEROL LEVEL 208 MG/DL (<200); CHOLESTEROL RISK RATIO 4.95 (<5); CREATININE FOR GFR 0.76 MG/DL (0.55-1.30); GLOMERULAR FILTRATION RATE > 60.0 (>60); GLUCOSE, FASTING 91 MG/DL (60-100); LDL CHOLESTEROL 138.2 MG/DL (<100); NON-HDL-C 166 MG/DL; POTASSIUM SERUM 4.5 MMOL/L (3.5-5.1); SODIUM LEVEL 141 MMOL/L (136-145); TOTAL PROTEIN 6.8 G/DL (5.7-8.2); TRIGLYCERIDES LEVEL 139 MG/DL (<150)
[2022-05-14 12:39] LABS: THYROID STIMULATING HORMONE 0.846 uIU/ML (0.55-4.78)
== END ==
LOC: M LAB REF 11:14
PROVIDERS: ATTEND Family Medicine Addiction Medicine
DX: E78.5 Hyperlipidemia, unspecified (principal)

== ENCOUNTER → 2022-08-05 | Outpatient (REF) | payer MEDICAID, OTHER ==
[~2022-08-05] MED LIST changes: -KETO0.5S15; +KETO0.5S4
== END ==
LOC: M PLALAB 10:31
PROVIDERS: ATTEND Advanced Practice Midwife
DX: Z12.4 Encounter for screening for malignant neoplasm of cervix (principal); R87.610 Atypical squamous cells of undetermined significance on cytologic smear of cervix (ASC-US)

== ENCOUNTER → 2022-08-13 | Outpatient (CLI) | payer OTHER | LOC: M RAD 14:38 | PROVIDERS: ATTEND Advanced Practice Midwife | DX: N92.0 Excessive and frequent menstruation with regular cycle (principal) ==

== ENCOUNTER → 2022-08-24 | Outpatient (CLI) | payer OTHER ==
[2022-08-24 11:18] LABS: HEMATOCRIT 39.7 % (36.0-47.0); HEMOGLOBIN 12.8 g/dl (12.0-15.5); MEAN CORPUSCULAR HGB CONC 32.2 g/dl (32.0-36.5); MEAN CORPUSCULAR VOLUME 89.8 fl (80.0-96.0); PLATELET COUNT, AUTOMATED 245 10^3/uL (150-450); RED BLOOD COUNT 4.42 10^6/uL (4.00-5.40); WHITE BLOOD COUNT 6.1 10^3/uL (4.0-10.0)
[2022-08-24 11:45] LABS: FOLLICLE STIMULATING HORMONE 5.5 mIU/ML; LUTEINIZING HORMONE 2.5 mIU/ML; THYROID STIMULATING HORMONE 0.922 uIU/ML (0.55-4.78)
[2022-08-24 11:46] LABS: FREE T4 0.94 NG/DL (0.89-1.76)
== END ==
LOC: M PLALAB 09:00
PROVIDERS: ATTEND Advanced Practice Midwife
DX: N92.0 Excessive and frequent menstruation with regular cycle (principal)

== ENCOUNTER → 2022-08-24 | Outpatient (CLI) | payer OTHER ==
[2022-08-24 11:17] LABS: HEMATOCRIT 39.5 % (36.0-47.0); HEMOGLOBIN 12.9 g/dl (12.0-15.5); MEAN CORPUSCULAR HEMOGLOBIN 29.4 pg (27.0-33.0); MEAN CORPUSCULAR HGB CONC 32.7 g/dl (32.0-36.5); PLATELET COUNT, AUTOMATED 240 10^3/uL (150-450); RED BLOOD COUNT 4.39 10^6/uL (4.00-5.40); WHITE BLOOD COUNT 6.1 10^3/uL (4.0-10.0)
[2022-08-24 11:42] LABS: FREE T4 0.95 NG/DL (0.89-1.76); PERCENT SATURATION 13.2 % (13.2-45.0)
[2022-08-24 11:44] LABS: THYROID STIMULATING HORMONE 0.933 uIU/ML (0.55-4.78)
[2022-08-24 11:45] LABS: FERRITIN 10.2 NG/ML (7.3-270.7)
== END ==
LOC: M PLALAB 09:02
PROVIDERS: ATTEND Internal Medicine Hematology
DX: D50.0 Iron deficiency anemia secondary to blood loss (chronic) (principal)

== ENCOUNTER → 2022-08-30 | Outpatient (REF) | payer MEDICAID, OTHER | LOC: M SFHCWAGY 17:38 | PROVIDERS: ATTEND Specialist | DX: R87.613 High grade squamous intraepithelial lesion on cytologic smear of cervix (HGSIL) (principal); N72 Inflammatory disease of cervix uteri ==

== ENCOUNTER 2022-10-18 11:49 | Outpatient (CLI) | payer OTHER ==
[~2022-10-18 11:49] MED LIST changes: +ALBUTEROL SULFATE 2.5MG/0.5ML INH NEB SOLN INH PRN; +EPINEPHrine INJ 1 MG/ML 1ML AMP IM PRN; +diphenhydrAMINE 50MG/ML VIAL IV PRN; +methylPREDNISolone 125MG 2ML VIAL IV PRN
[2022-10-18] MEDS ORDERED: IRON SUCROSE 200 MG in NS 100 ML OVER 1 HR IV ONE (13:00)
[2022-10-18] MEDS ORDERED: NS 1,000 ML IV SCH (13:00)
[2022-10-18 13:05] VITALS: BP 112/68; O2SAT 100
[2022-10-18 14:40] VITALS: BP 109/56; O2SAT 100
== END 2022-10-18 14:50 | disposition home or self-care (01) ==
LOC: M INFU 11:49
PROVIDERS: ATTEND Internal Medicine Hematology
DX: D50.9 Iron deficiency anemia, unspecified (principal)
CPT/HCPCS: 96365; J1756

== ENCOUNTER 2022-10-26 12:30 | Outpatient (CLI) | payer OTHER ==
[2022-10-26 12:20] VITALS: BP 117/60; O2SAT 98
[2022-10-26] MEDS ORDERED: NS 1,000 ML IV SCH (12:40)
[2022-10-26] MEDS ORDERED: IRON SUCROSE 200 MG in NS 100 ML OVER 1 HR IV ONE (12:45)
[2022-10-26 14:18] VITALS: BP 106/66; O2SAT 96
[2022-10-27] MEDS ORDERED: AMOX875T PO (09:44)
== END 2022-10-26 14:20 | disposition home or self-care (01) ==
LOC: M INFU 12:30
PROVIDERS: ATTEND Internal Medicine Hematology
DX: D50.9 Iron deficiency anemia, unspecified (principal)
CPT/HCPCS: 96365; J1756

== ENCOUNTER 2022-11-01 06:00 | Outpatient (CLI) | payer OTHER ==
[~2022-11-01] VITALS: Ht 157.5 cm; Wt 92.3 kg
[~2022-11-01 06:00] MED LIST changes: -ALBUTEROL SULFATE 2.5MG/0.5ML INH NEB SOLN INH PRN; +AMOX875T PO; -EPINEPHrine INJ 1 MG/ML 1ML AMP IM PRN; -diphenhydrAMINE 50MG/ML VIAL IV PRN; -methylPREDNISolone 125MG 2ML VIAL IV PRN
[2022-11-01] MEDS ORDERED: diphenhydrAMINE 50MG/ML VIAL IV PRN (07:01)
[2022-11-01] MEDS ORDERED: ALBUTEROL SULFATE 2.5MG/0.5ML INH NEB SOLN INH PRN (07:01)
[2022-11-01] MEDS ORDERED: EPINEPHrine INJ 1 MG/ML 1ML AMP IM PRN (07:01)
[2022-11-01] MEDS ORDERED: methylPREDNISolone 125MG 2ML VIAL IV PRN (07:01)
[2022-11-01] MEDS ORDERED: NS 1,000 ML IV SCH (08:00)
[2022-11-01] MEDS ORDERED: IRON SUCROSE 200 MG in NS 100 ML OVER 1 HR IV ONE (08:00)
[2022-11-01 08:05] VITALS: BP 136/78; O2SAT 99
[2022-11-01 09:05] VITALS: BP 86/63; O2SAT 100
== END 2022-11-01 09:05 ==
LOC: M INFU 06:00
PROVIDERS: ATTEND Internal Medicine Hematology
DX: D50.9 Iron deficiency anemia, unspecified (principal)
CPT/HCPCS: 96365; J1756

== ENCOUNTER 2022-11-08 08:50 | Outpatient (CLI) | payer OTHER ==
[~2022-11-08 08:50] MED LIST changes: +ALBUTEROL SULFATE 2.5MG/0.5ML INH NEB SOLN INH PRN; +EPINEPHrine INJ 1 MG/ML 1ML AMP IM PRN; +NS 1,000 ML IV SCH; +diphenhydrAMINE 50MG/ML VIAL IV PRN; +methylPREDNISolone 125MG 2ML VIAL IV PRN
[2022-11-08] MEDS ORDERED: IRON SUCROSE 200 MG in NS 100 ML OVER 1 HR IV ONE (09:00)
[2022-11-08 10:32] VITALS: BP 121/87; O2SAT 98
== END 2022-11-08 10:35 | disposition home or self-care (01) ==
LOC: M INFU 08:50
PROVIDERS: ATTEND Internal Medicine Hematology
DX: D50.9 Iron deficiency anemia, unspecified (principal)
CPT/HCPCS: 96365; J1756

== ENCOUNTER 2022-11-10 09:18 | Day surgery (SDC) | payer OTHER ==
[~2022-11-10] VITALS: Ht 157.5 cm; Wt 91.2 kg
[~2022-11-10 09:18] MED LIST changes: -ALBUTEROL SULFATE 2.5MG/0.5ML INH NEB SOLN INH PRN; -EPINEPHrine INJ 1 MG/ML 1ML AMP IM PRN; +LIDOCAINE 2% 100MG/5ML SDV (FOR ANES.) As Ordered ONE; +MIDAZOLAM INJ 2MG/2ML VIAL As Ordered ONE; -NS 1,000 ML IV SCH; +ROCURONIUM BROMIDE 50MG/5ML VIAL As Ordered ONE; +ceFAZolin SOD 2 GM in IV 1 EA IV ONE; -diphenhydrAMINE 50MG/ML VIAL IV PRN; +fentaNYL 250 MCG/5 ML INJECTION As Ordered ONE; -methylPREDNISolone 125MG 2ML VIAL IV PRN; +propofoL 200 MG/20 ML VIAL As Ordered ONE
[2022-11-10 09:49] LABS: HEMATOCRIT 41.8 % (36.0-47.0); HEMOGLOBIN 13.2 g/dl (12.0-15.5); MEAN CORPUSCULAR HEMOGLOBIN 28.1 pg (27.0-33.0); MEAN CORPUSCULAR HGB CONC 31.6 g/dl (32.0-36.5); MEAN CORPUSCULAR VOLUME 88.9 fl (80.0-96.0); PLATELET COUNT, AUTOMATED 251 10^3/uL (150-450); WHITE BLOOD COUNT 7.7 10^3/uL (4.0-10.0)
[2022-11-10] MEDS ORDERED: LR 1,000 ML IV SCH ×4 (09:55→14:25)
[2022-11-10] MEDS ORDERED: oxyCODONE 5MG TAB PO PRN ×2 (09:55→14:20)
[2022-11-10] MEDS ORDERED: fentaNYL 100 MCG/2 ML INJECTION IV PRN ×2 (09:55→14:20)
[2022-11-10] MEDS ORDERED: ONDANSETRON 4MG 2ML VIAL IV PRN ×2 (09:55→14:20)
[2022-11-10] MEDS ORDERED: OXYC1TAB23 PO (12:24)
[2022-11-10] MEDS ORDERED: IBUP-1022 PO (12:25)
[2022-11-10] MEDS ORDERED: METOCLOPRAMIDE INJ 10MG/2ML VIAL As Ordered ONE (13:16)
[2022-11-10] MEDS ORDERED: ACETAMINOPHEN 1000MG 100ML IV BAG As Ordered ONE (13:16)
[2022-11-10] MEDS ORDERED: KETOROLAC 60MG 2ML VIAL As Ordered ONE (13:16)
[2022-11-10] MEDS ORDERED: ONDANSETRON 4MG 2ML VIAL As Ordered ONE (13:16)
[2022-11-10] MEDS ORDERED: SUGAMMADEX SODIUM 500 MG/5 ML VIAL (BRIDION) As Ordered ONE (13:19)
[2022-11-10] MEDS ORDERED: HYDROmorphone HCL 2MG/ML 1ML VIAL As Ordered ONE (13:19)
[2022-11-10] MEDS ORDERED: ROCURONIUM BROMIDE 50MG/5ML VIAL As Ordered ONE (13:22)
[2022-11-10] MEDS ORDERED: PERCOCET 5MG/325MG TAB PO PRN (14:25)
[2022-11-10 16:45] VITALS: BP 112/63; TEMP 97.1; O2SAT 97
== END 2022-11-10 16:52 | disposition home or self-care (01) ==
LOC: M SDC 09:18
PROVIDERS: ATTEND Specialist
DX: C53.9 Malignant neoplasm of cervix uteri, unspecified (principal); N92.0 Excessive and frequent menstruation with regular cycle; K66.0 Peritoneal adhesions (postprocedural) (postinfection); E16.2 Hypoglycemia, unspecified; D64.9 Anemia, unspecified; E78.5 Hyperlipidemia, unspecified; M46.1 Sacroiliitis, not elsewhere classified; J32.9 Chronic sinusitis, unspecified; F17.200 Nicotine dependence, unspecified, uncomplicated; Z91.030 Bee allergy status; Z79.899 Other long term (current) drug therapy
CPT/HCPCS: 36415; 58573; 81025; 85027; 86850; 86900; 86901; 88307; J0131; J0665; J0690; J1100; J1170; J1885; J2250; J2405; J2765; J3010; S2900

== ENCOUNTER → 2022-12-01 | Outpatient (CLI) | payer OTHER ==
[~2022-12-01] MED LIST changes: +GASTROGRAFIN SOLUTION 30ML As Ordered ONE; +ISOVUE-370 76% 100ML VIAL As Ordered ONE; -LIDOCAINE 2% 100MG/5ML SDV (FOR ANES.) As Ordered ONE; -MIDAZOLAM INJ 2MG/2ML VIAL As Ordered ONE; -ROCURONIUM BROMIDE 50MG/5ML VIAL As Ordered ONE; -ceFAZolin SOD 2 GM in IV 1 EA IV ONE; -fentaNYL 250 MCG/5 ML INJECTION As Ordered ONE; -propofoL 200 MG/20 ML VIAL As Ordered ONE
== END ==
LOC: M RAD 11:38
PROVIDERS: ATTEND Specialist
DX: C53.9 Malignant neoplasm of cervix uteri, unspecified (principal)
CPT/HCPCS: 74178; Q9963; Q9967

== ENCOUNTER → 2022-12-27 | Outpatient (REF) | payer OTHER, MEDICAID ==
[~2022-12-27] MED LIST changes: +CYCL-707 PO; -GASTROGRAFIN SOLUTION 30ML As Ordered ONE; -ISOVUE-370 76% 100ML VIAL As Ordered ONE
[2022-12-27 14:25] LABS: CHOLESTEROL RISK RATIO 5.4 (<5); HDL CHOLESTEROL 42.9 MG/DL (>40); LDL CHOLESTEROL 163.5 MG/DL (<100); NON-HDL-C 189.1 MG/DL
== END ==
LOC: M LAB REF 11:38
PROVIDERS: ATTEND Family Medicine Addiction Medicine
DX: E78.5 Hyperlipidemia, unspecified (principal)

== ENCOUNTER → 2023-08-23 | Outpatient (REF) | payer OTHER, MEDICAID ==
[2023-08-23 13:46] LABS: ALBUMIN 4.4 G/DL (3.2-5.2); ALKALINE PHOSPHATASE 66 U/L (46-116); ALT/SGPT 35 U/L (7.0-40); AST/SGOT 16 U/L (<34); BILIRUBIN,TOTAL 1.1 MG/DL (0.3-1.2); BLOOD UREA NITROGEN 16 MG/DL (9-23); CALCIUM LEVEL 9.4 MG/DL (8.5-10.1); CARBON DIOXIDE LEVEL 26 MMOL/L (20-31); CHLORIDE LEVEL 106 MMOL/L (98-107); CHOLESTEROL LEVEL 168 MG/DL (<200); CHOLESTEROL RISK RATIO 4.38 (<5); CREATININE FOR GFR 0.74 MG/DL (0.55-1.30); GLOMERULAR FILTRATION RATE > 60.0 (>60); GLUCOSE, FASTING 88 MG/DL (60-100); HDL CHOLESTEROL 38.3 MG/DL (>40); LDL CHOLESTEROL 110.9 MG/DL (<100); NON-HDL-C 129.7 MG/DL; POTASSIUM SERUM 4.5 MMOL/L (3.5-5.1); SODIUM LEVEL 138 MMOL/L (136-145); TRIGLYCERIDES LEVEL 94 MG/DL (<150)
[2023-08-23 13:47] LABS: THYROID STIMULATING HORMONE 0.841 uIU/ML (0.55-4.78)
== END ==
LOC: M LAB REF 13:19
PROVIDERS: ATTEND Family Medicine Addiction Medicine
DX: E78.5 Hyperlipidemia, unspecified (principal)

== ENCOUNTER → 2023-09-27 | Outpatient (CLI) | payer OTHER ==
[2023-09-27 13:20] LABS: BASO # 0.1 10^3/uL (0.0-0.2); BASO % 0.9 % (0.0-1.0); EOS # 0.1 10^3/uL (0.0-0.5); EOS % 1.2 % (0.0-3.0); HEMATOCRIT 45.4 % (36.0-47.0); HEMOGLOBIN 14.8 g/dl (12.0-15.5); LYMPH # 1.7 10^3/uL (1.5-5.0); MEAN CORPUSCULAR HEMOGLOBIN 29.5 pg (27.0-33.0); MEAN CORPUSCULAR HGB CONC 32.6 g/dl (32.0-36.5); MEAN CORPUSCULAR VOLUME 90.6 fl (80.0-96.0); MONO # 0.6 10^3/uL (0.0-0.8); MONO % 8.2 % (2.0-8.0); NEUTROPHILS # 4.5 10^3/uL (1.5-8.5); NEUTROPHILS % 65.3 % (36.0-66.0); PLATELET COUNT, AUTOMATED 224 10^3/uL (150-450); RED BLOOD COUNT 5.01 10^6/uL (4.00-5.40); WHITE BLOOD COUNT 6.9 10^3/uL (4.0-10.0)
== END ==
LOC: M PLALAB 09:48
PROVIDERS: ATTEND Internal Medicine Hematology
DX: D50.0 Iron deficiency anemia secondary to blood loss (chronic) (principal)

== ENCOUNTER → 2023-10-27 | Outpatient (CLI) | payer OTHER ==
[~2023-10-27] MED LIST changes: +ROSU10TA61 PO; +THERTAB52 PO
[2023-10-29 12:33] LABS: HPV APTIMA Not Detected (Not Detected)
== END ==
LOC: M PLALAB 14:20
PROVIDERS: ATTEND Nurse Practitioner Women's Health
DX: Z12.72 Encounter for screening for malignant neoplasm of vagina (principal); Z80.0 Family history of malignant neoplasm of digestive organs; C53.9 Malignant neoplasm of cervix uteri, unspecified; R87.620 Atypical squamous cells of undetermined significance on cytologic smear of vagina (ASC-US)

== ENCOUNTER 2023-11-08 06:57 | Day surgery (SDC) | payer OTHER ==
[~2023-11-08] VITALS: Ht 157.5 cm; Wt 84.8 kg
[~2023-11-08 06:57] MED LIST changes: +NS 1,000 ML IV ONE; +SIMETHICONE 40MG/0.6ML DROPS 30ML As Ordered ONE
[2023-11-08] MEDS ORDERED: propofoL 500 MG/50 ML VIAL As Ordered ONE (07:03)
[2023-11-08] MEDS ORDERED: fentaNYL 100 MCG/2 ML INJECTION As Ordered ONE (07:05)
[2023-11-08] MEDS ORDERED: LIDOCAINE 2% 100MG/5ML SDV (FOR ANES.) As Ordered ONE (07:06)
[2023-11-08] MEDS ORDERED: MIDAZOLAM INJ 2MG/2ML VIAL As Ordered ONE (07:32)
[2023-11-08] MEDS ORDERED: ONDANSETRON 4MG 2ML VIAL As Ordered ONE (07:49)
[2023-11-08] MEDS ORDERED: ePHEDrine SULFATE 25 MG/5 ML(5MG/ML) SYRINGE As Ordered ONE (07:58)
[2023-11-08 08:16] VITALS: TEMP 97.4
[2023-11-08 08:45] VITALS: BP 141/75; O2SAT 100
== END 2023-11-08 09:05 | disposition home or self-care (01) ==
LOC: M OPP 06:57
PROVIDERS: ATTEND Surgery
DX: K64.9 Unspecified hemorrhoids (principal); K62.5 Hemorrhage of anus and rectum; Z80.0 Family history of malignant neoplasm of digestive organs; R10.32 Left lower quadrant pain; R19.4 Change in bowel habit; K44.9 Diaphragmatic hernia without obstruction or gangrene; K31.7 Polyp of stomach and duodenum; K21.00 Gastro-esophageal reflux disease with esophagitis, without bleeding; K31.89 Other diseases of stomach and duodenum; Z79.02 Long term (current) use of antithrombotics/antiplatelets; F17.200 Nicotine dependence, unspecified, uncomplicated; E78.00 Pure hypercholesterolemia, unspecified; E16.2 Hypoglycemia, unspecified
CPT/HCPCS: 43239; 45378; 88305; J2250; J2405; J3010

== ENCOUNTER → 2024-02-21 | Outpatient (REF) | payer OTHER, MEDICAID ==
[~2024-02-21] MED LIST changes: -NS 1,000 ML IV ONE; -SIMETHICONE 40MG/0.6ML DROPS 30ML As Ordered ONE
[2024-02-21 13:42] LABS: BASO # 0.1 10^3/uL (0.0-0.2); BASO % 0.9 % (0.0-1.0); EOS # 0.1 10^3/uL (0.0-0.5); EOS % 1.5 % (0.0-3.0); HEMATOCRIT 44.8 % (36.0-47.0); HEMOGLOBIN 14.7 g/dl (12.0-15.5); LYMPH # 1.7 10^3/uL (1.5-5.0); LYMPH % 26.3 % (24.0-44.0); MEAN CORPUSCULAR HEMOGLOBIN 29.9 pg (27.0-33.0); MEAN CORPUSCULAR HGB CONC 32.8 g/dl (32.0-36.5); MEAN CORPUSCULAR VOLUME 91.1 fl (80.0-96.0); MONO # 0.5 10^3/uL (0.0-0.8); MONO % 8.3 % (2.0-8.0); NEUTROPHILS % 62.5 % (36.0-66.0); PLATELET COUNT, AUTOMATED 215 10^3/uL (150-450); RED BLOOD COUNT 4.92 10^6/uL (4.00-5.40); WHITE BLOOD COUNT 6.5 10^3/uL (4.0-10.0)
[2024-02-21 14:12] LABS: ALKALINE PHOSPHATASE 66 U/L (35-104); ALT/SGPT 25 U/L (7.0-40); AST/SGOT 10 U/L (<34); BILIRUBIN,TOTAL 0.7 MG/DL (0.3-1.2); BLOOD UREA NITROGEN 12 MG/DL (9-23); CALCIUM LEVEL 9.6 MG/DL (8.5-10.1); CARBON DIOXIDE LEVEL 28 MMOL/L (20-31); CHLORIDE LEVEL 105 MMOL/L (98-107); CHOLESTEROL LEVEL 228 MG/DL (<200); CHOLESTEROL RISK RATIO 4.34 (<5); CREATININE FOR GFR 0.74 MG/DL (0.55-1.30); GLOMERULAR FILTRATION RATE > 60.0 (>60); GLUCOSE, FASTING 82 MG/DL (60-100); HDL CHOLESTEROL 52.5 MG/DL (>40); LDL CHOLESTEROL 146.5 MG/DL (<100); NON-HDL-C 175.5 MG/DL; POTASSIUM SERUM 4.4 MMOL/L (3.5-5.1); SODIUM LEVEL 140 MMOL/L (136-145); TOTAL PROTEIN 6.9 G/DL (5.7-8.2); TRIGLYCERIDES LEVEL 145 MG/DL (<150)
[2024-02-21 14:14] LABS: THYROID STIMULATING HORMONE 1.397 uIU/ML (0.55-4.78)
== END ==
LOC: M LAB REF 12:24
PROVIDERS: ATTEND Family Medicine Addiction Medicine
DX: E78.5 Hyperlipidemia, unspecified (principal)

== ENCOUNTER → 2024-02-28 | Outpatient (REF) | payer MEDICAID, OTHER | LOC: M SFHCDERM 17:31 | PROVIDERS: ATTEND Nurse Practitioner Family | DX: L82.1 Other seborrheic keratosis (principal); D22.39 Melanocytic nevi of other parts of face; D22.4 Melanocytic nevi of scalp and neck ==

== ENCOUNTER → 2024-05-15 | Outpatient (REF) | payer OTHER ==
[2024-05-15 14:05] LABS: BASO % 0.4 % (0.0-1.0); EOS # 0.1 10^3/uL (0.0-0.5); EOS % 1.2 % (0.0-3.0); HEMATOCRIT 43.5 % (36.0-47.0); HEMOGLOBIN 14.2 g/dl (12.0-15.5); LYMPH # 1.5 10^3/uL (1.5-5.0); LYMPH % 21.4 % (24.0-44.0); MEAN CORPUSCULAR HGB CONC 32.6 g/dl (32.0-36.5); MEAN CORPUSCULAR VOLUME 91.8 fl (80.0-96.0); MONO # 0.6 10^3/uL (0.0-0.8); MONO % 8.1 % (2.0-8.0); NEUTROPHILS # 4.8 10^3/uL (1.5-8.5); NEUTROPHILS % 68.8 % (36.0-66.0); PLATELET COUNT, AUTOMATED 215 10^3/uL (150-450); RED BLOOD COUNT 4.74 10^6/uL (4.00-5.40)
[2024-05-15 14:10] LABS: ALKALINE PHOSPHATASE 59 U/L (35-104); ALT/SGPT 20 U/L (7.0-40); AST/SGOT 13 U/L (<34); BILIRUBIN,TOTAL 0.8 MG/DL (0.3-1.2); BLOOD UREA NITROGEN 15 MG/DL (9-23); CALCIUM LEVEL 8.9 MG/DL (8.5-10.1); CARBON DIOXIDE LEVEL 28 MMOL/L (20-31); CHLORIDE LEVEL 106 MMOL/L (98-107); CHOLESTEROL LEVEL 195 MG/DL (<200); CHOLESTEROL RISK RATIO 4.15 (<5); CREATININE FOR GFR 0.72 MG/DL (0.55-1.30); GLOMERULAR FILTRATION RATE > 60.0 (>60); GLUCOSE, FASTING 91 MG/DL (60-100); HDL CHOLESTEROL 46.9 MG/DL (>40); IRON (FE) 119 UG/DL (50-170); LDL CHOLESTEROL 126.9 MG/DL (<100); NON-HDL-C 148.1 MG/DL; POTASSIUM SERUM 4.7 MMOL/L (3.5-5.1); SODIUM LEVEL 142 MMOL/L (136-145); TOTAL PROTEIN 6.8 G/DL (5.7-8.2); TRIGLYCERIDES LEVEL 106 MG/DL (<150)
== END ==
LOC: M LAB REF 13:02
PROVIDERS: ATTEND Family Medicine Addiction Medicine
DX: E78.5 Hyperlipidemia, unspecified (principal); D64.9 Anemia, unspecified

== ENCOUNTER 2024-09-06 10:49 | Emergency (ER) | payer OTHER ==
[~2024-09-06] VITALS: Ht 157.5 cm; Wt 82.8 kg
[~2024-09-06 10:49] MED LIST changes: -KETO0.5S4; +KETO5DRO32
[2024-09-06] MEDS ORDERED: LEXA1TAB PO (10:58)
[2024-09-06] MEDS ORDERED: ACET-897 PO (11:43)
[2024-09-06] MEDS ORDERED: HOME MED LIST COMPLETE! XX SCH (11:45)
[2024-09-06] MEDS: KETOROLAC 30 MG/ML 1 ML VIAL IM ONE (11:55)
[2024-09-06] MEDS: ACETAMINOPHEN 500 MG TAB PO ONE (11:55)
[2024-09-06] MEDS: LIDOCAINE 5% PATCH TD ONE (11:55)
[2024-09-06] MEDS ORDERED: MEDR4PAK PO (12:51)
[2024-09-06] MEDS ORDERED: TIZA4CAP PO (12:51)
[2024-09-06 12:58] VITALS: BP 119/65; TEMP 97.8; O2SAT 100
[2024-09-06] MEDS ORDERED: physical therapy (13:01)
== END 2024-09-06 13:14 | disposition home or self-care (01) ==
LOC: M ED 10:49
DX: M62.838 Other muscle spasm (principal); M25.511 Pain in right shoulder; F41.9 Anxiety disorder, unspecified; F17.290 Nicotine dependence, other tobacco product, uncomplicated; Z91.030 Bee allergy status; Z91.09 Other allergy status, other than to drugs and biological substances; Z79.1 Long term (current) use of non-steroidal anti-inflammatories (NSAID); Z79.899 Other long term (current) drug therapy
CPT/HCPCS: 72052; 73030; 96372; 99283; J1885